=== PATIENT | female | born 1950 | race Caucasian/White ===

== ENCOUNTER → 2021-09-29 | Outpatient (CLI) | payer MEDICARE ==
[~2021-09-29] MED LIST: MULT50L PO
== END | disposition home or self-care (01) ==
LOC: LAB 11:30 → LAB SHORT 11:30
DX: S61.205A Unspecified open wound of left ring finger without damage to nail, initial encounter (principal)
CPT/HCPCS: 87070; 87075; 87076; 87077; 87185; 87205

== ENCOUNTER → 2022-02-09 | Outpatient (CLI) | payer MEDICARE ==
[2022-02-09 17:20] LABS: BASOPHILS ABSOLUTE AUTO 0.06 K/mm3 (0.00-0.23); BASOPHILS PERCENT AUTO 1 % (0-2); EOSINOPHILS ABSOLUTE AUTO 0.36 K/mm3 (0.00-0.68); EOSINOPHILS PERCENT AUTO 6 % (0-6); Hemoglobin 14.3 g/dL (11.5-16.0); IMMATURE GRAN ABSOLUTE AUTO 0.04 K/mm3 (0.00-0.10); IMMATURE GRAN PERCENT AUTO 1 % (0-1); LYMPHOCYTES ABSOLUTE AUTO 1.65 K/mm3 (0.84-5.20); LYMPHOCYTES PERCENT AUTO 28 % (21-46); MONOCYTES PERCENT AUTO 9 % (4-13); Mean Corpuscular HGB 30.1 pg (26.0-34.0); Mean Corpuscular Volume 88 fL (80-100); Mean Platelet Volume 11.3 fL (9.1-12.4); NEUTROPHILS PERCENT AUTO 56 % (41-73); Platelet Count 247 K/mm3 (150-400); RDW Coefficient Variation 12.1 % (11.7-14.2); RDW Standard Deviation 39.4 fL (35.1-46.3); Red Blood Cell Count 4.75 M/mm3 (3.80-5.20); White Blood Cell Count 5.91 K/mm3 (4.00-11.30)
[2022-02-09 18:53] LABS: Alanine Aminotransfer (ALT/SGP 40 U/L (12-78); Albumin, Blood 3.6 g/dL (3.4-5.0); Albumin/Globulin Ratio 0.9 (0.8-1.8); Alk Phos 87 U/L (50-136); Anion Gap 6 mmol/L (6-16); Aspartate Aminotrans (AST/SGOT 70 U/L (12-37); Bilirubin, Total 0.3 mg/dL (0.1-1.0); Blood Urea Nitrogen 14 mg/dL (8-24); Bun/Creatinine Ratio 19.8 (12.0-20.0); CO2, Blood 27 mmol/L (21-32); Calcium, Blood 9.6 mg/dL (8.5-10.1); Chloride, Blood 103 mmol/L (98-108); Cholesterol 218 mg/dL (50-200); Creatinine, Blood 0.71 mg/dL (0.40-1.00); Free Thyroxine 0.98 ng/dL (0.70-1.60); Glomerular Filtration Rate 89 (60-); Glucose, Blood 314 mg/dL (70-99); HDL Cholesterol 54 mg/dL (>39); LDL/HDL RATIO 2.2; Low Density Lipoprotein Chol 120 mg/dL (0-110); Potassium, Blood 4.5 mmol/L (3.5-5.5); Sodium, Blood 136 mmol/L (136-145); Thyroid Stimulating Hormone 0.719 uIU/mL (0.360-4.800); Total Protein, Blood 7.6 g/dL (6.4-8.2); Triglycerides 218 mg/dL (30-160); Very Low Density Lipoprot Chol 43 mg/dL (6-32)
[2022-02-09 19:15] LABS: Cancer Antigen 125 4.2 U/mL (1.5-35.0); Carcinoembryonic Antigen 2.9 ng/mL (0.0-3.0)
== END | disposition home or self-care (01) ==
LOC: LAB 09:00 → LAB SHORT 09:00 → LAB FUT 02-09 11:30 → EDSTATUS 02-09 11:30
PROVIDERS: Family Medicine
DX: E78.5 Hyperlipidemia, unspecified (principal); Z85.41 Personal history of malignant neoplasm of cervix uteri
CPT/HCPCS: 80053; 80061; 82378; 84439; 84443; 85025; 86304

== ENCOUNTER → 2022-06-11 | Outpatient (CLI) | payer MEDICARE ==
[2022-06-14 11:22] LABS: U Amphetamine Screen Not Detected; U Barbituate Screen Not Detected; U Benzodiazapine Screen DETECTED; U Buprenorphine Screen Not Detected; U Cannabinoids Screen Not Detected; U Cocaine Screen Not Detected; U Methadone Screen Not Detected; U Methamphetamine Screen Not Detected; U Opiates Screen Not Detected; U Oxycodone Screen Not Detected; U Phencyclidine Screen Not Detected; U Propoxyphene Screen Not Detected
== END ==
LOC: LAB SHORT 18:38 → LAB 18:38
PROVIDERS: Physician Assistant
DX: M54.9 Dorsalgia, unspecified (principal); Z79.899 Other long term (current) drug therapy; G89.29 Other chronic pain

== ENCOUNTER 2022-10-21 11:11 | Emergency (ER) | payer MEDICARE ==
[~2022-10-21] VITALS: Ht 162.6 cm; Wt 57.1 kg
[2022-10-21 11:25] VITALS: BP 128/67
[2022-10-21] MEDS ORDERED: Bactrim Ds Tab1 EACH PO ×2 (12:30→12:38)
[2022-10-21] MEDS ORDERED: CEPH500 PO ×2 (12:30→12:38)
== END 2022-10-21 12:44 | disposition home or self-care (01) ==
LOC: ER 11:11
DX: L03.115 Cellulitis of right lower limb (principal); L02.415 Cutaneous abscess of right lower limb; Z88.8 Allergy status to other drugs, medicaments and biological substances; Z79.899 Other long term (current) drug therapy
CPT/HCPCS: 10160; 99282-25

== ENCOUNTER → 2023-03-02 | Outpatient (CLI) | payer MEDICARE ==
[~2023-03-02] MED LIST changes: +Bactrim Ds Tab1 EACH PO; +CEPH500 PO
== END ==
LOC: LAB SHORT 12:30 → LAB 12:30
DX: L08.9 Local infection of the skin and subcutaneous tissue, unspecified (principal)
CPT/HCPCS: 87070; 87075; 87077; 87186; 87205

== ENCOUNTER 2023-03-16 09:31 | Inpatient (IN) | payer MEDICARE ==
[~2023-03-16] VITALS: Ht 167.6 cm; Wt 53.1 kg
[2023-03-16 10:40] LABS: BASOPHILS ABSOLUTE AUTO 0.03 K/mm3 (0.00-0.23); BASOPHILS PERCENT AUTO 0 % (0-2); EOSINOPHILS ABSOLUTE AUTO 0.03 K/mm3 (0.00-0.68); EOSINOPHILS PERCENT AUTO 0 % (0-6); Hematocrit 37.7 % (33.0-51.0); Hemoglobin 12.5 g/dL (11.5-16.0); IMMATURE GRAN ABSOLUTE AUTO 0.06 K/mm3 (0.00-0.10); IMMATURE GRAN PERCENT AUTO 1 % (0-1); LYMPHOCYTES ABSOLUTE AUTO 1.33 K/mm3 (0.84-5.20); LYMPHOCYTES PERCENT AUTO 10 % (21-46); MONOCYTES ABSOLUTE AUTO 0.77 K/mm3 (0.16-1.47); MONOCYTES PERCENT AUTO 6 % (4-13); Mean Corpuscular HGB 28.4 pg (26.0-34.0); Mean Corpuscular HGB Conc 33.2 g/dL (31.5-36.5); Mean Corpuscular Volume 86 fL (80-100); Mean Platelet Volume 9.8 fL (9.1-12.4); NEUTROPHILS ABSOLUTE AUTO 10.86 K/mm3 (1.96-9.15); NEUTROPHILS PERCENT AUTO 83 % (41-73); Platelet Count 543 K/mm3 (150-400); RDW Standard Deviation 37.9 fL (35.1-46.3); White Blood Cell Count 13.08 K/mm3 (4.00-11.30)
[2023-03-16 11:05] LABS: Albumin, Blood 2.8 g/dL (3.4-5.0); Albumin/Globulin Ratio 0.5 (0.8-1.8); Bilirubin, Total 0.4 mg/dL (0.1-1.0); Bun/Creatinine Ratio 41.2 (12.0-20.0); Calcium, Blood 10.2 mg/dL (8.5-10.1); Creatinine, Blood 0.73 mg/dL (0.40-1.00); Globulin, Blood 5.2 g/dL (2.2-4.0)
[2023-03-16 11:35] LABS: Calcium, Ionized (POC) 1.21 mmol/L (1.10-1.46); Chloride (POC) 90 mmol/L (98-108); Creatinine (POC) 0.8 mg/dL (0.6-1.0); Glucose (ISTAT POC) 489 mg/dL (70-99); Hemoglobin (POC) 12.6 g/dL (12.0-16.0); Sodium (POC) 130 mmol/L (135-148); Total CO2 (POC) 31 mmol/L (21-32)
[2023-03-16] MEDS ORDERED: Doxycycline Mon50 MG PO (12:22)
[2023-03-16] MEDS ORDERED: PROZAC2010 PO (12:22)
[2023-03-16 13:18] LABS: Potassium, Blood 3.9 mmol/L (3.5-5.5)
[2023-03-16 16:40] VITALS: BP 187/88
[2023-03-16 17:53] VITALS: BP 181/80
[2023-03-16 18:32] VITALS: BP 140/72
--- NOTE | 2023-03-16 18:50 | NUR ---
DRESSING APPLIED WOUND CLEANED W/WOUND INSULATION ENGINEMAN AND DRESSING APPLIED TO R KNEE. DRESSED W/NON ADHERENT PAD, 4X4 GAUZE, AND BRENNAN WRAP. REDNESS, SWELLING, AND WHITE/YELLOW DRAINAGE NOTED.
[2023-03-16 20:02] VITALS: BP 147/69
[2023-03-17] VITALS (15 sets, daily range): BP systolic 106–192; BP diastolic 54–86
--- NOTE | 2023-03-17 04:38 | NUR ---
SHIFT SUMMARY; NO ACUTE CHANGES OVERNIGHT. THE PT IS AXO X3-4 AND A ONE ASSIST TO THE BSC. THE PT HAS BEEN SLEEPING FOR THE MAJORITY OF THE NIGHT. THE PT COMPLAINED OF R KNEE PAIN ONCE AT THE BEGINNING OF SHIFT, MEDICATED W/ TORADOL W/ GOOD RELIEF. THE PT HAS OTHERWISE DENIED ANY PAIN, SOB, CHEST PAIN/PRESSURE OR N/V. CURRENTLY THE PT IS SLEEPING IN BED WITH THE BED IN THE LOWEST POSITION AND THE CALL LIGHT AT BEDSIDE. PT HAS BEEN NPO SINCE MIDNIGHT IN PREPERATION FOR SURGERY TODAY. FIRE SAFETY MAINTAINED T/O THE NIGHT.
[2023-03-17 06:35] LABS: BASOPHILS ABSOLUTE AUTO 0.04 K/mm3 (0.00-0.23); BASOPHILS PERCENT AUTO 0 % (0-2); EOSINOPHILS PERCENT AUTO 2 % (0-6); Hematocrit 31.3 % (33.0-51.0); Hemoglobin 10.4 g/dL (11.5-16.0); IMMATURE GRAN ABSOLUTE AUTO 0.07 K/mm3 (0.00-0.10); IMMATURE GRAN PERCENT AUTO 1 % (0-1); LYMPHOCYTES ABSOLUTE AUTO 1.87 K/mm3 (0.84-5.20); LYMPHOCYTES PERCENT AUTO 17 % (21-46); MONOCYTES ABSOLUTE AUTO 0.91 K/mm3 (0.16-1.47); MONOCYTES PERCENT AUTO 8 % (4-13); Mean Corpuscular HGB 28.5 pg (26.0-34.0); Mean Corpuscular HGB Conc 33.2 g/dL (31.5-36.5); Mean Corpuscular Volume 86 fL (80-100); Mean Platelet Volume 10.1 fL (9.1-12.4); NEUTROPHILS ABSOLUTE AUTO 8.17 K/mm3 (1.96-9.15); NEUTROPHILS PERCENT AUTO 73 % (41-73); Platelet Count 428 K/mm3 (150-400); RDW Coefficient Variation 12.1 % (11.7-14.2); RDW Standard Deviation 37.5 fL (35.1-46.3); Red Blood Cell Count 3.65 M/mm3 (3.80-5.20); White Blood Cell Count 11.26 K/mm3 (4.00-11.30)
[2023-03-17 06:54] LABS: Bun/Creatinine Ratio 32.9 (12.0-20.0); Calcium, Blood 8.7 mg/dL (8.5-10.1); Creatinine, Blood 0.67 mg/dL (0.40-1.00); Potassium, Blood 3.2 mmol/L (3.5-5.5)
--- NOTE | 2023-03-17 13:58 | NUR ---
REPORT RECEIVED FROM SIFTER AND MILLER DAVE. PT ARRIVED BACK TO ROOM 331 VIA GURNEY AND SLIDE TX TO BED. PT ALERT AND ORIENTED X4, REPORTS INCREASED PAIN TO R KNEE WHICH IS BRENNAN WRAPPED AND CDI. PT IS CRYING. WILL MEDICATE WITH TORADOL AND TYLENOL PER AUG.
--- NOTE | 2023-03-17 16:44 | NUR ---
PT IS AOX4 AND COOPERATIVE OF CARE. PT HAD IND COMPLETED ON R KNEE TODAY AND IS DOING WELL AT THIS TIME. SISTER IS SITTING WITH PT. PT TREATED FOR PAIN PER EMAR. PT HAD HIGH BP,BUT BP HAS IMPROVED WILL CONTINUE TO MONITOR AND TREAT IF NEEDED. CALL LIGHT IS WITHIN REACH.
[2023-03-18 03:34] VITALS: BP 158/72
[2023-03-18 05:47] LABS: BASOPHILS ABSOLUTE AUTO 0.04 K/mm3 (0.00-0.23); BASOPHILS PERCENT AUTO 0 % (0-2); EOSINOPHILS ABSOLUTE AUTO 0.33 K/mm3 (0.00-0.68); EOSINOPHILS PERCENT AUTO 3 % (0-6); Hematocrit 29.4 % (33.0-51.0); Hemoglobin 9.8 g/dL (11.5-16.0); IMMATURE GRAN ABSOLUTE AUTO 0.11 K/mm3 (0.00-0.10); IMMATURE GRAN PERCENT AUTO 1 % (0-1); LYMPHOCYTES ABSOLUTE AUTO 1.88 K/mm3 (0.84-5.20); LYMPHOCYTES PERCENT AUTO 17 % (21-46); MONOCYTES ABSOLUTE AUTO 0.88 K/mm3 (0.16-1.47); MONOCYTES PERCENT AUTO 8 % (4-13); Mean Corpuscular HGB Conc 33.3 g/dL (31.5-36.5); Mean Corpuscular Volume 87 fL (80-100); Mean Platelet Volume 9.9 fL (9.1-12.4); NEUTROPHILS PERCENT AUTO 71 % (41-73); Platelet Count 358 K/mm3 (150-400); RDW Coefficient Variation 12.5 % (11.7-14.2); RDW Standard Deviation 39.7 fL (35.1-46.3); Red Blood Cell Count 3.38 M/mm3 (3.80-5.20); White Blood Cell Count 11.14 K/mm3 (4.00-11.30)
[2023-03-18 06:07] LABS: Bun/Creatinine Ratio 28.7 (12.0-20.0); Calcium, Blood 7.9 mg/dL (8.5-10.1); Creatinine, Blood 0.7 mg/dL (0.40-1.00); Potassium, Blood 3.8 mmol/L (3.5-5.5)
--- NOTE | 2023-03-18 06:46 | NUR ---
SHIFT SUMMARY PRN TRAMADOL AND TORADOL GIVEN THIS SHIFT, BOTH WITH POSITIVE EFFECT. PT MOBILITY IN RLE GREATLY IMPROVED SINCE START OF SHIFT. FIRE SAFETY REVIEWED, NO IGNITION SOURCES
[2023-03-18 07:47] VITALS: BP 179/81
[2023-03-18 14:52] VITALS: BP 110/66
--- NOTE | 2023-03-18 16:30 | NUR ---
PT IS AOX4 AND COOPERATIVE OF CARE. PT DOING WELL AND CAN MOVE L LEG MUCH BETTER TODAY AND WIGGLE TOES AND FOOT. PT WAS ABLE TO WORK WITH PHYSICAL THERAPY AND WALK WITH WALKER. SHE ALSO WALKED WITH HER SISTER IN THE HALLWAY WITH WALKER. PT USING WALKER WELL TO GO INTO RESTROOM. L KNEE PAIN TREATED PER EMAR. NO DISTRESS NOTED AND CALL LIGHT WITHIN REACH. WILL CONTINUE TO MONITOR.
[2023-03-18 19:22] VITALS: BP 136/65
[2023-03-19 03:51] VITALS: BP 166/77
--- NOTE | 2023-03-19 05:14 | NUR ---
SHIFT SUMMARY 73 YR F ADMITTED ON 03/16/21 FOR ABSCESS AND I&D OF RIGHT KNEE. DNR. NO ACUTE CHANGES THIS SHIFT. PT STATES SHE IS STILL HAVING A GREAT DEAL OF PAIN BUT HAS MORE MOBILITY IN HER KNEE AND THAT SHE CAN TELL IT IS GETTING BETTER. SHE IS EAGER TO HEAL AND STATES THAT SHE WILL BE PROACTIVE IN HER CARE.
[2023-03-19 05:44] LABS: BASOPHILS ABSOLUTE AUTO 0.04 K/mm3 (0.00-0.23); BASOPHILS PERCENT AUTO 1 % (0-2); EOSINOPHILS ABSOLUTE AUTO 0.43 K/mm3 (0.00-0.68); EOSINOPHILS PERCENT AUTO 6 % (0-6); Hematocrit 27.4 % (33.0-51.0); IMMATURE GRAN PERCENT AUTO 1 % (0-1); LYMPHOCYTES ABSOLUTE AUTO 1.63 K/mm3 (0.84-5.20); LYMPHOCYTES PERCENT AUTO 21 % (21-46); MONOCYTES ABSOLUTE AUTO 0.85 K/mm3 (0.16-1.47); MONOCYTES PERCENT AUTO 11 % (4-13); Mean Corpuscular HGB 28.9 pg (26.0-34.0); Mean Corpuscular HGB Conc 32.8 g/dL (31.5-36.5); Mean Corpuscular Volume 88 fL (80-100); Mean Platelet Volume 10.3 fL (9.1-12.4); NEUTROPHILS PERCENT AUTO 61 % (41-73); Platelet Count 315 K/mm3 (150-400); RDW Coefficient Variation 12.5 % (11.7-14.2); RDW Standard Deviation 39.8 fL (35.1-46.3); Red Blood Cell Count 3.11 M/mm3 (3.80-5.20); White Blood Cell Count 7.75 K/mm3 (4.00-11.30)
[2023-03-19 06:12] LABS: Albumin, Blood 1.9 g/dL (3.4-5.0); Anion Gap 2 mmol/L (6-16); Blood Urea Nitrogen 24 mg/dL (8-24); Bun/Creatinine Ratio 34.1 (12.0-20.0); CO2, Blood 30 mmol/L (21-32); Calcium, Blood 8.2 mg/dL (8.5-10.1); Chloride, Blood 107 mmol/L (98-108); Glomerular Filtration Rate 90 (60-); Glucose, Blood 239 mg/dL (70-99); Phosphorus, Blood 2.6 mg/dL (2.5-4.9); Potassium, Blood 3.7 mmol/L (3.5-5.5); Sodium, Blood 139 mmol/L (136-145)
[2023-03-19 07:26] VITALS: BP 189/83
[2023-03-19 07:52] VITALS: BP 161/70
--- NOTE | 2023-03-19 11:10 | NUR ---
PHYSICIAN CONTACT CONTACTED SURGERY WAVE GUIDE ASSEMBLER REGARDING WOUND CARE AND DISCHARGE. ORDERED ADAPTIC WET TO DRY DRESSING TO BE CHANGED TODAY AND DAILY, FOLLOW UP WITH OUTPATIENT WOUND CLINIC MEENA.
--- NOTE | 2023-03-19 12:25 | NUR ---
CONTACTED CM CONTACTED WEEKEND CM WHO STATED SHE WOULD MAKE [facility]. PATIENT MADE AWARE BY PRIMARY RN
[2023-03-19] MEDS ORDERED: INSULANPEN SC (12:43)
[2023-03-19] MEDS ORDERED: ACET325 PO (12:43)
[2023-03-19] MEDS ORDERED: OMEP20ER PO (12:44)
[2023-03-19] MEDS ORDERED: Prinivil10 MG PO (12:44)
[2023-03-19] MEDS ORDERED: HUMULIN R100 UNIT/1 SC (12:44)
[2023-03-19] MEDS ORDERED: TRAM50 PO (12:45)
[2023-03-19] MEDS ORDERED: LEVO750 PO (12:48)
[2023-03-19] MEDS ORDERED: VISBIOME 112.51 EACH PO (12:48)
[2023-03-19 14:56] VITALS: BP 137/67
--- NOTE | 2023-03-19 16:16 | NUR ---
DISCHARGE SUMMARY PATIENT DISCHARGED THIS SHIFT, HOME WITH HOME HEALTH TO FOLLOW, CM CONTACTED AND STATED THEY WOULD PLACE REFERRAL. HARD SCRIPTS PROVIDED AND MEDS FAXED TO [facility]. EDUCATION PROVIDED VERBALLY AND IN WRITING, PATIENT ASKED QUESTIONS AND PROVIDED TEACHBACK TO RN. WOUND CARE SUPPLIES SENT WITH PATIENT TO LAST THROUGH TUESDAY UNTIL ABLE TO BE SEEN BY WOUND CARE/HH. PATIENT WAS ABLE TO PROVIDE VERBAL INSTRUCTION ON WOUND CARE. IV DISCONTINUED PRIOR TO DISCHARGE.
== END 2023-03-19 15:35 | disposition home health service (06) | DRG 572 ==
LOC: ER 09:31 → MEDS 14:04 → ENPENDDIS 03-19 11:29 → MEDS 03-19 15:35
PROVIDERS: Emergency Medicine; Orthopaedic Surgery; Physician Assistant; ADMIT Family Medicine
PROC: 0S9C3ZX Drainage of Right Knee Joint, Percutaneous Approach, Diagnostic (ICD-10-PCS; 2023-03-17)
PROC: 0JBN0ZZ Excision of Right Lower Leg Subcutaneous Tissue and Fascia, Open Approach (ICD-10-PCS; principal; 2023-03-17 11:30)
DX: L02.415 Cutaneous abscess of right lower limb (principal); S81.001A Unspecified open wound, right knee, initial encounter; M70.41 Prepatellar bursitis, right knee; Z66 Do not resuscitate; E11.65 Type 2 diabetes mellitus with hyperglycemia; K21.9 Gastro-esophageal reflux disease without esophagitis; R29.6 Repeated falls; D72.828 Other elevated white blood cell count; F32.A Depression, unspecified; E87.6 Hypokalemia; D64.9 Anemia, unspecified; D75.839 Thrombocytosis, unspecified; I10 Essential (primary) hypertension; M19.90 Unspecified osteoarthritis, unspecified site; M85.80 Other specified disorders of bone density and structure, unspecified site; N80.9 Endometriosis, unspecified; X58.XXXA Exposure to other specified factors, initial encounter; Z85.41 Personal history of malignant neoplasm of cervix uteri; Z90.49 Acquired absence of other specified parts of digestive tract; Z90.710 Acquired absence of both cervix and uterus; Z98.890 Other specified postprocedural states
CPT/HCPCS: 36415; 73701; 80047; 80048; 80053; 80069; 82947; 83036; 85014; 85025; 87070; 87071; 87075; 87076; 87077; 87186; 87205; 97110; 97116; 97162; 97530; 99284-25; A9270; J0360; J0690; J1100; J1650; J1815; J1885; J2405; J2704; J3010; J7030; J7050; J7120; Q9967

== ENCOUNTER 2024-06-28 15:01 | Inpatient (IN) | payer MEDICARE ==
[~2024-06-28] VITALS: Ht 165.1 cm; Wt 57.7 kg
[~2024-06-28 15:01] MED LIST changes: +ACET325 PO; +Doxycycline Mon50 MG PO; +HUMULIN R100 UNIT/1 SC; +INSULANPEN SC; +LEVO750 PO; +OMEP20ER PO; +PROZAC2010 PO; +Prinivil10 MG PO; +TRAM50 PO; +VISBIOME 112.51 EACH PO
[2024-06-28 16:02] LABS: BASOPHILS ABSOLUTE AUTO 0.06 K/mm3 (0.00-0.23); BASOPHILS PERCENT AUTO 1 % (0-2); EOSINOPHILS ABSOLUTE AUTO 0.83 K/mm3 (0.00-0.68); EOSINOPHILS PERCENT AUTO 12 % (0-6); Hematocrit 37.9 % (33.0-51.0); Hemoglobin 12.9 g/dL (11.5-16.0); IMMATURE GRAN ABSOLUTE AUTO 0.01 K/mm3 (0.00-0.10); IMMATURE GRAN PERCENT AUTO 0 % (0-1); LYMPHOCYTES ABSOLUTE AUTO 2.22 K/mm3 (0.84-5.20); LYMPHOCYTES PERCENT AUTO 32 % (21-46); MONOCYTES ABSOLUTE AUTO 0.64 K/mm3 (0.16-1.47); MONOCYTES PERCENT AUTO 9 % (4-13); Mean Corpuscular HGB 30.4 pg (26.0-34.0); Mean Corpuscular Volume 89 fL (80-100); NEUTROPHILS ABSOLUTE AUTO 3.25 K/mm3 (1.96-9.15); NEUTROPHILS PERCENT AUTO 46 % (41-73); Platelet Count 203 K/mm3 (150-400); RDW Coefficient Variation 12.9 % (11.7-14.2); RDW Standard Deviation 42.1 fL (35.1-46.3); Red Blood Cell Count 4.24 M/mm3 (3.80-5.20); White Blood Cell Count 7.01 K/mm3 (4.00-11.30)
[2024-06-28 16:29] LABS: Albumin, Blood 3.7 g/dL (3.4-5.0); Albumin/Globulin Ratio 0.9 (0.8-1.8); Bilirubin, Total 0.3 mg/dL (0.1-1.0); Bun/Creatinine Ratio 17.5 (12.0-20.0); Calcium, Blood 9.7 mg/dL (8.5-10.1); Creatinine, Blood 0.8 mg/dL (0.40-1.00); Globulin, Blood 3.9 g/dL (2.2-4.0); Potassium, Blood 4.1 mmol/L (3.5-5.5); Total Protein, Blood 7.6 g/dL (6.4-8.2)
[2024-06-28] MEDS ORDERED: Aspirin 325 MG Tab PO ONE (20:55)
[2024-06-28] MEDS ORDERED: HydrALAZINE HCl 20 MG / ML 1ML Vial IV ONE ×2 (21:00→23:10)
[2024-06-28] MEDS ORDERED: FLU VACC TS2024-25(6MOS UP)/PF 45 MCG/0.5 ML SYRINGE IM ONE (21:40)
[2024-06-28] MEDS ORDERED: HydrALAZINE HCl 20 MG / ML 1ML Vial IV PRN (23:20)
[2024-06-29] VITALS (9 sets, daily range): BP systolic 130–188; BP diastolic 65–82
[2024-06-29] MEDS ORDERED: METF500 PO (01:42)
[2024-06-29] MEDS ORDERED: CODACE30 PO (01:45)
[2024-06-29] MEDS ORDERED: HydrALAZINE HCl 20 MG / ML 1ML Vial IV PRN ×2 (03:30→08:20)
[2024-06-29 04:17] LABS: BASOPHILS ABSOLUTE AUTO 0.05 K/mm3 (0.00-0.23); BASOPHILS PERCENT AUTO 1 % (0-2); EOSINOPHILS ABSOLUTE AUTO 0.66 K/mm3 (0.00-0.68); EOSINOPHILS PERCENT AUTO 10 % (0-6); IMMATURE GRAN ABSOLUTE AUTO 0.02 K/mm3 (0.00-0.10); IMMATURE GRAN PERCENT AUTO 0 % (0-1); LYMPHOCYTES ABSOLUTE AUTO 1.55 K/mm3 (0.84-5.20); LYMPHOCYTES PERCENT AUTO 24 % (21-46); MONOCYTES ABSOLUTE AUTO 0.61 K/mm3 (0.16-1.47); MONOCYTES PERCENT AUTO 9 % (4-13); Mean Corpuscular HGB 29.9 pg (26.0-34.0); Mean Corpuscular HGB Conc 33.3 g/dL (31.5-36.5); Mean Corpuscular Volume 90 fL (80-100); Mean Platelet Volume 10.4 fL (9.1-12.4); NEUTROPHILS PERCENT AUTO 55 % (41-73); Platelet Count 181 K/mm3 (150-400); RDW Coefficient Variation 12.9 % (11.7-14.2); RDW Standard Deviation 42.7 fL (35.1-46.3); Red Blood Cell Count 4.02 M/mm3 (3.80-5.20); White Blood Cell Count 6.49 K/mm3 (4.00-11.30)
[2024-06-29 04:44] LABS: Albumin, Blood 3.3 g/dL (3.4-5.0); Albumin/Globulin Ratio 0.9 (0.8-1.8); Bilirubin, Total 0.4 mg/dL (0.1-1.0); Bun/Creatinine Ratio 16.3 (12.0-20.0); Calcium, Blood 9.2 mg/dL (8.5-10.1); Creatinine, Blood 0.8 mg/dL (0.40-1.00); Globulin, Blood 3.5 g/dL (2.2-4.0); Potassium, Blood 3.8 mmol/L (3.5-5.5); Total Protein, Blood 6.8 g/dL (6.4-8.2)
[2024-06-29] MEDS ORDERED: OxyCODONE HCL 10 MG TABCR PO PRN (08:35)
[2024-06-29] MEDS ORDERED: Clopidogrel Bisulfate 75 MG Tab PO SCH (09:00)
[2024-06-29] MEDS ORDERED: FLUoxetine HCL 20 MG CAP PO SCH (09:00)
[2024-06-29] MEDS ORDERED: Atorvastatin 40 MG Tab PO SCH (09:00)
[2024-06-29] MEDS ORDERED: Aspirin 81 MG Chew PO SCH (09:00)
--- NOTE | 2024-06-29 17:56 | NUR ---
SHIFT NOTE: PT A/OX3. SHE CAN ANSWER YES/NO AND SIMPLE QUESTIONS. ANYTHING REQUIRING EXPLANATION SHE IS UNABLE TO ARTICULATE THE WORDS. SHE CAN MOVE ALL EXTRIMITIES AND AMBULATES WITHOUT ASSISTED DEVICES. SHE IS CONT AND AMBULATES TO THE BATHROOM SBA. SHE IS ON TELE IN NSR/SB. SHE DENIES CHEST PAIN/PRESSURE. SHE ENDORSES HEADACHE WITH RELIEF FROM OXYCODONE. PT HAS BEEN UPDATED ON PLAN OF CARE BY DR. MAGANA.
[2024-06-30 01:30] VITALS: BP 152/72
[2024-06-30 06:14] VITALS: BP 167/85
--- NOTE | 2024-06-30 06:56 | NUR ---
PERSONNEL TECHNICIAN SUMMARY NO SIGNIFICANT CHANGES OVERNIGHT. PT IS WALKING THE UNIT MULTIPLE TIMES WITHOUT ISSUES. SHE IS STILL EXPERIENCING SOME EXPRESSIVE APHASIA BUT IS OTHERWISE NEUROLOGICALLY INTACT. HER BLOOD PRESSURES HAVE BEEN IN THE 130S-150S
[2024-06-30 07:54] VITALS: BP 211/90
[2024-06-30 08:20] VITALS: BP 154/97
[2024-06-30] MEDS ORDERED: Pantoprazole Sodium 20 MG Tab PO SCH (10:00)
[2024-06-30 10:52] LABS: Albumin, Blood 3.5 g/dL (3.4-5.0); Albumin/Globulin Ratio 0.9 (0.8-1.8); Bilirubin, Total 0.5 mg/dL (0.1-1.0); Bun/Creatinine Ratio 17.5 (12.0-20.0); Calcium, Blood 9.9 mg/dL (8.5-10.1); Creatinine, Blood 0.97 mg/dL (0.40-1.00); Globulin, Blood 3.8 g/dL (2.2-4.0); Potassium, Blood 4.4 mmol/L (3.5-5.5); Thyroid Stimulating Hormone 0.779 uIU/mL (0.360-4.800); Total Protein, Blood 7.3 g/dL (6.4-8.2)
--- NOTE | 2024-06-30 12:20 | NUR ---
UPDATE STATUS CHANGED TO MEDICAL. PT REMAINS ALERT AND ORIENTED. PT UP AMBULATING IN THE GARCIA. PT DENIES ANY PAIN. REPORT GIVEN TO MEDICAL FLOOR RN TO ASSUME CARE. WILL TRANSPORT PT VIA
--- NOTE | 2024-06-30 12:49 | NUR ---
ASSUMED CARE OF PATIENT. UNDER THE IMPRESSION SHE IS DISCHARGING TODAY AND ANXIOUS TO DO SO; WILL REACH OUT TO PROVIDER FOR CLARIFICATION.
--- NOTE | 2024-06-30 12:55 | NUR ---
CALL TO DR. COLMENARES WHO STATES PATIENT'S BP STILL VERY LABILE AND DISCHARGE IS NOT SAFE AT THIS POINT. PATIENT NOTIFIED. DISAPPOINTED, BUT AGREEABLE AT THIS TIME.
[2024-06-30 13:51] VITALS: BP 177/74
--- NOTE | 2024-06-30 13:52 | NUR ---
1345 PT WALKING DOWN GARCIA WITH FAMILY MEMBER AND STATES SHE IS LEAVING.DISCUSSED WITH PATIENT LEAVING AMA AND PT VERIFIES SHE WISHES TO LEAVE AMA. HAD PT RETURN TO ROOM AND AFTER SPEAKING WITH PATIENTS PRIMARY NURSE, RUSTAM ARELLANO, I DISCUSSED WITH PT WAS THE PLAN THAT DR COLMENARES DISCUSSED WITH PATIENT THIS MORNING WAS SHE WILL LIKELY STAY IN HOSPITAL UNTIL TUESDAY HER BP HAS BEEN VERY LABILE AND MEDICATIONS ARE BEING ADJUSTED. CALLED DR COLMENARES WHO WILL SPEAK WITH PATIENT AND FAMILY ABOUT PLAN OF CARE. PT TEARFUL, AGREES TO WAIT TO SPEAK WITH DR COLMENARES
--- NOTE | 2024-06-30 14:53 | NUR ---
DR. COLMENARES TO BEDSIDE AND DISCUSSED PATIENT'S BLOOD PRESSURE WITH HER. PATIENT AGREEABLE TO STAY, RIGHT NOW. FAMILY FRIEND AT BEDSIDE REPORTS SHE CAN BE PERSISTENT, STUBBORN AND FORGETFUL AND IS NOT SURE FOR HOW LONG PATIENT WILL "STAY STILL". PROVIDED WITH PRINTED HANDOUTS OF INFORMATION AND EDUCATION FOR BOTH PATIENT AND A COPY FOR HER FRIEND. FRIEND TOLD PATIENT SHE IS GOING TO READ THE INFORMATION AND "MAKE SURE EVERYTHING IS READY FOR HER AT HOME" IN HOPES OF PATIENT STAYING AGREEABLE.
--- NOTE | 2024-06-30 17:51 | NUR ---
END OF SHIFT SUMMARY: A&Ox4. PLEASANT AND COOPERATIVE WITH CARE. CALLS APPROPRIATELY AND IS ABLE TO ADVOCATE NEEDS EFFECTIVELY. INDEPENDENT WITH AMBULATE. CONTINENT OF BOWEL AND BLADDER. MEDS WHOLE c FLUIDS. NO COMPLAINTS OF PAIN OR DISCOMFORT. DID EXPRESS SOME EMOTIONAL DISCONTENT WITH NOT DISCHARGING HOME TODAY AND BEGAN LEAVING AMA BUT WAS AGREEABLE TO STAYING AFTER DISCUSSION WITH DR. COLMENARES AND OTHER STAFF MEMBERS. STAFF REITERATE EDUCATION REGARDING PERMISSIVE HYPERTENSION, SLOW REDUCTION OF BLOOD PRESSURE AND SAFETY HAZARDS RELATED TO BOTH ORTHOSTATIC HYPOTENSION AND HYPERTENSIVE EMERGENCY. BED IN LOWEST POSITION, CALL LIGHT WITHIN REACH, ALL NEEDS MET. REPORT TO ONCOMING NURSE.
[2024-06-30] MEDS ORDERED: Lisinopril 5 MG Tab PO ONE (18:00)
[2024-06-30 20:08] VITALS: BP 130/61
[2024-07-01 03:48] VITALS: BP 115/64
--- NOTE | 2024-07-01 04:33 | NUR ---
SHIFT SUMM: PT IS A 74 YO DNR PCU TRANSFER YESTERDAY THAT WAS ADMITTED FOR HYPERTENSIVE EMERGENCY. PT IS IND IN ROOM AND CALLS WHEN SHE NEEDS SOMETHING. PT IS ON TELE AND IS SR AT 62 W/OCCASIONAL PVC'S.PT HAS SOME DYSPHAGIA AND TROUBLE SPEAKING OR THINKING OF THE NAME OF THE WORD SHE WANTS TO USE AT TIMES. PT IS A&OX4 ON RA. PT HAS PERMISSIVE HTN THAT THE DOCTOR IS AWARE OF. PT HAS SPENT MOST OF SHIFT WATCHING TV IN BED. PT HAS BEEN IN GOOD SPIRITS AND JUST FOCUSING ON RESTING FOR RIGHT NOW. CALL LIGHT IN REACH. PT ALSO AMBULATED IN THE HALLWAYS AND ALSO HAS A ZIO PATCH.
[2024-07-01 05:30] LABS: BASOPHILS ABSOLUTE AUTO 0.05 K/mm3 (0.00-0.23); BASOPHILS PERCENT AUTO 1 % (0-2); EOSINOPHILS ABSOLUTE AUTO 0.64 K/mm3 (0.00-0.68); EOSINOPHILS PERCENT AUTO 10 % (0-6); Hematocrit 37.3 % (33.0-51.0); Hemoglobin 12.6 g/dL (11.5-16.0); IMMATURE GRAN ABSOLUTE AUTO 0.02 K/mm3 (0.00-0.10); IMMATURE GRAN PERCENT AUTO 0 % (0-1); LYMPHOCYTES ABSOLUTE AUTO 1.56 K/mm3 (0.84-5.20); LYMPHOCYTES PERCENT AUTO 24 % (21-46); MONOCYTES ABSOLUTE AUTO 0.69 K/mm3 (0.16-1.47); MONOCYTES PERCENT AUTO 11 % (4-13); Mean Corpuscular HGB 30.5 pg (26.0-34.0); Mean Corpuscular HGB Conc 33.8 g/dL (31.5-36.5); Mean Corpuscular Volume 90 fL (80-100); Mean Platelet Volume 10.4 fL (9.1-12.4); NEUTROPHILS ABSOLUTE AUTO 3.53 K/mm3 (1.96-9.15); NEUTROPHILS PERCENT AUTO 54 % (41-73); Platelet Count 211 K/mm3 (150-400); RDW Coefficient Variation 12.9 % (11.7-14.2); RDW Standard Deviation 42.3 fL (35.1-46.3); Red Blood Cell Count 4.13 M/mm3 (3.80-5.20); White Blood Cell Count 6.49 K/mm3 (4.00-11.30)
[2024-07-01 06:29] LABS: Anion Gap 9 mmol/L (3-11); Blood Urea Nitrogen 21 mg/dL (8-24); Bun/Creatinine Ratio 19.3 (12.0-20.0); CHOL/HDL RATIO 3.8; CO2, Blood 26 mmol/L (21-32); Calcium, Blood 9.7 mg/dL (8.5-10.1); Chloride, Blood 108 mmol/L (98-108); Cholesterol 253 mg/dL (50-200); Creatinine, Blood 1.09 mg/dL (0.40-1.00); Glomerular Filtration Rate 53 (60-); Glucose, Blood 202 mg/dL (70-99); HDL Cholesterol 66 mg/dL (>39); LDL/HDL RATIO 2.3; Low Density Lipoprotein Chol 151 mg/dL (0-110); Potassium, Blood 4.2 mmol/L (3.5-5.5); Sodium, Blood 139 mmol/L (136-145); Triglycerides 181 mg/dL (30-160); Very Low Density Lipoprot Chol 36 mg/dL (6-32)
[2024-07-01 07:17] VITALS: BP 209/86
[2024-07-01 08:38] VITALS: BP 176/81
[2024-07-01] MEDS ORDERED: Lisinopril 10 MG Tab PO SCH (09:00)
[2024-07-01] MEDS ORDERED: ATOR80 PO (10:34)
[2024-07-01] MEDS ORDERED: PANT20 PO (10:34)
[2024-07-01] MEDS ORDERED: ASPI81CH PO (10:34)
[2024-07-01] MEDS ORDERED: CLOP75 PO (10:35)
[2024-07-01 12:56] VITALS: BP 154/81
--- NOTE | 2024-07-01 13:07 | NUR ---
PHYSICIAN CONTACT CALLED DR COLMENARES TO INFORM HER THAT PATIENT FELL. WAS COMING ACROSS GARCIA TO ASK FOR BUTTER, THIS RN WATCHED HER WALK BACK INTO ROOM THEN TURNED BACK TO COMPUTER AND HEAR THE FALL. PATIENT FELL ON BUTTOCK AND L ELBOW, DID NOT HIT HEAD. NO IMMEDIATE INJURIES NOTED. VITALS TAKEN, OKAY RANGE FOR CONDITION AT THIS TIME. REPORTS BEING "CAUGHT UP ON SHOES" WHICH CAUSED FALL. DR COLMENARES ADVISED PHYSICAL THERAPY TO SEE PT PRIOR TO DISCHARGING. ATTEMPTED TO CALL PT, NO ANSWER, LEFT MESSAGE. NO ANSWER AT PHYSICAL THERAPY OFFICE. THERAPY CALLED BACK, STATED THEY WOULD EVAL NEXT ON LIST.
[2024-07-01 13:16] VITALS: BP 154/81
--- NOTE | 2024-07-01 15:45 | NUR ---
DISCHARGE SUMMARY PATIENT DISCHARGED HOME THIS SHIFT WITH FRIEND TO DRIVE, SENT WITH INSTRUCTIONS TO FOLLOW UP WITH PCP FOR OUTPATIENT PHYSICAL THERAPY. DISCHARGE PACKET UPDATED AND GIVEN TO PT TO REFLECT THIS CHANGE. DISCHARGE PACKET GIVEN AND REVIEWED, QUESTIONS ANSWERED, VERBALIZED UNDERSTANDING. IV REMOVED PRIOR WITHOUT COMPLICATION.
== END 2024-07-01 15:24 | disposition home or self-care (01) | DRG 65 ==
LOC: ER 15:01 → PCU 21:40 → MEDS 06-30 12:31 → ENPENDDIS 07-01 12:49 → MEDS 07-01 15:24
PROVIDERS: Internal Medicine; Physician Assistant; Student in an Organized Health Care Education/Training Program; ADMIT Student in an Organized Health Care Education/Training Program
DX: I63.412 Cerebral infarction due to embolism of left middle cerebral artery (principal); I16.1 Hypertensive emergency; I65.23 Occlusion and stenosis of bilateral carotid arteries; Z66 Do not resuscitate; F32.A Depression, unspecified; R00.1 Bradycardia, unspecified; R29.701 NIHSS score 1; R47.01 Aphasia; I10 Essential (primary) hypertension; E11.9 Type 2 diabetes mellitus without complications; K21.9 Gastro-esophageal reflux disease without esophagitis; M19.90 Unspecified osteoarthritis, unspecified site; Z79.4 Long term (current) use of insulin; Z85.41 Personal history of malignant neoplasm of cervix uteri; Z90.49 Acquired absence of other specified parts of digestive tract; Z90.710 Acquired absence of both cervix and uterus; Z90.722 Acquired absence of ovaries, bilateral; Z90.79 Acquired absence of other genital organ(s); Z88.8 Allergy status to other drugs, medicaments and biological substances
CPT/HCPCS: 36415; 70450; 70551; 80048; 80053; 80061; 83036; 84443; 85025; 92507; 92523; 93246; 93306; 93880; 97161; 97530; 99285-25; A9270; J0360; J2470

== ENCOUNTER 2024-07-30 05:52 | Inpatient (IN) | payer MEDICARE ==
[~2024-07-30] VITALS: Ht 165.1 cm; Wt 55.7 kg
[~2024-07-30 05:52] MED LIST changes: +ASPI81CH PO; +ATOR80 PO; +CLOP75 PO; +CODACE30 PO; +METF500C PO; +PANT20 PO; -Prinivil10 MG PO; +Zestril30 MG PO
[2024-07-30] MEDS ORDERED: Ondansetron HCl 2 MG / ML 2ML Vial IV ONE (06:10)
[2024-07-30] MEDS ORDERED: FentaNYL Citrate 50 MCG/ML 2 ML Injection IV ONE (06:10)
[2024-07-30] MEDS ORDERED: NS 1,000 ML IV SCH ×2 (06:10→08:35)
[2024-07-30 06:17] LABS: Hematocrit 37.6 % (33.0-51.0); Hemoglobin 12.8 g/dL (11.5-16.0); Mean Corpuscular Volume 88 fL (80-100); Mean Platelet Volume 10.9 fL (9.1-12.4); Platelet Count 273 K/mm3 (150-400); RDW Coefficient Variation 12.8 % (11.7-14.2); Red Blood Cell Count 4.26 M/mm3 (3.80-5.20); White Blood Cell Count 24.87 K/mm3 (4.00-11.30)
[2024-07-30 06:33] LABS: Albumin, Blood 3.1 g/dL (3.4-5.0); Albumin/Globulin Ratio 0.9 (0.8-1.8); Bilirubin, Total 0.7 mg/dL (0.1-1.0); Bun/Creatinine Ratio 13.7 (12.0-20.0); Calcium, Blood 9.5 mg/dL (8.5-10.1); Creatinine, Blood 2.55 mg/dL (0.40-1.00); Globulin, Blood 3.5 g/dL (2.2-4.0); Potassium, Blood 4.1 mmol/L (3.5-5.5); Total Protein, Blood 6.6 g/dL (6.4-8.2)
[2024-07-30 06:37] LABS: BAND PERCENT MAN 17 % (0-8); BASOPHILS PERCENT MAN 0 % (0-2); EOSINOPHILS PERCENT MAN 0 % (0-6); LYMPHOCYTES ABSOLUTE MAN 1.24 K/mm3 (0.84-5.20); LYMPHOCYTES PERCENT MAN 5 % (21-46); MONOCYTES ABSOLUTE MAN 1.24 K/mm3 (0.16-1.47); MONOCYTES PERCENT MAN 5 % (4-13); NEUTROPHILS ABSOLUTE MAN 22.38 K/mm3 (1.96-9.15); SEG NEUTROPHILS PERCENT MAN 73 % (41-73); TOTAL CELLS COUNTED 100
[2024-07-30] MEDS ORDERED: Ciprofloxacin 400MG/D5 200ML 200 ML IV ONE (07:25)
[2024-07-30] MEDS ORDERED: MetroNIDAZOLE 500MG/NS 100 ml 100 ML IV ONE (07:25)
[2024-07-30] MEDS ORDERED: Docusate Sodium 100 MG Cap PO PRN (08:30)
[2024-07-30] MEDS ORDERED: Lactated Ringer's 1,000 ML IV SCH ×2 (08:30→15:15)
[2024-07-30] MEDS ORDERED: FLU VACC TS2024-25(6MOS UP)/PF 45 MCG/0.5 ML SYRINGE IM SCH (08:30)
[2024-07-30] MEDS ORDERED: Ondansetron HCl 2 MG / ML 2ML Vial IV PRN (08:35)
[2024-07-30 10:42] LABS: Source, Urine Clean Catch
[2024-07-30 10:46] LABS: Appearance, Urine Clear (Clear); Bilirubin, Urine Neg (Neg); Blood, Urine 2+ (Neg); Color, Urine Amber (P-Yellow); Glucose Qualitative, Urine Neg (Neg); Ketones, Urine Neg (Neg); Leukocyte Esterase, Urine 2+ (Neg); Nitrite, Urine Neg (Neg); Protein, Urine 2+ (Neg); Urobilinogen, Urine 1+ (Normal)
[2024-07-30 11:02] LABS: Squamous Epithelial Cells Few /hpf (Few)
[2024-07-30 11:03] LABS: Amorphous Light (0-Heavy); Bacteria Few /hpf; Transitional Epithelial Cells Rare /hpf (0-Rare)
[2024-07-30] MEDS ORDERED: FentaNYL Citrate 50 MCG/ML 2 ML Injection IV PRN (13:20)
[2024-07-30 15:30] VITALS: BP 138/58
[2024-07-30] MEDS ORDERED: Acetaminophen 325 MG TABLET PO PRN (16:10)
[2024-07-30] MEDS ORDERED: OxyCODONE HCL 5 MG TAB PO PRN (16:10)
[2024-07-30] MEDS ORDERED: Insulin Human Lispro 100 Units/ML 3ML Syringe SC SCH (16:30)
[2024-07-30] MEDS ORDERED: HYDROmorphone HCl/Pf 1MG SYR IV ONE (17:00)
[2024-07-30] MEDS ORDERED: HYDROmorphone HCl/Pf 1MG SYR IV PRN (17:00)
--- NOTE | 2024-07-30 17:32 | NUR ---
SHIFT SUMMARY PT A NEW ADMIT THIS SHIFT. AOX4 WITH INTERMITTANT CONFUSION. PAINFUL UPON ADMIT TO THE FLOOR, MEDICATED PER THE EMAR FOR PAIN. BA ON. PT CALLS AT TIMES. PT REPOSITIONS SELF IN BED. OTHER THAN THE PAIN, NO OTHER ACUTE COMPLAINTS. PT IS A 1 ASSIST TO THE BSC. CALL LIGHT WITHIN REACH, BED LOCKED AND IN THE LOWEST POSITION. WILL REPORT TO ONCOMING NURSE.
[2024-07-30 19:41] VITALS: BP 113/68
[2024-07-31 02:15] VITALS: BP 150/66
--- NOTE | 2024-07-31 04:26 | NUR ---
Shift Summary Pt rcving LR @ 150. She c/o of LLQ pain and was medicated once with 5mg Oxycodone, pt able to sleep well t/o most of the night. She had one episode of watery diahhrea with blood in the stool which is similar to her BM last night per pt. She is 1 SBA to the BSC, AOx4, cooperative with care.
[2024-07-31 05:54] LABS: Hematocrit 32.8 % (33.0-51.0); Hemoglobin 10.9 g/dL (11.5-16.0); Mean Corpuscular HGB 29.6 pg (26.0-34.0); Mean Corpuscular HGB Conc 33.2 g/dL (31.5-36.5); Mean Corpuscular Volume 89 fL (80-100); Platelet Count 219 K/mm3 (150-400); RDW Coefficient Variation 13.2 % (11.7-14.2); RDW Standard Deviation 43.5 fL (35.1-46.3); Red Blood Cell Count 3.68 M/mm3 (3.80-5.20); White Blood Cell Count 15.64 K/mm3 (4.00-11.30)
[2024-07-31 06:13] LABS: Albumin, Blood 2.7 g/dL (3.4-5.0); Albumin/Globulin Ratio 0.7 (0.8-1.8); Bilirubin, Total 0.5 mg/dL (0.1-1.0); Bun/Creatinine Ratio 18.5 (12.0-20.0); Calcium, Blood 8.5 mg/dL (8.5-10.1); Globulin, Blood 3.7 g/dL (2.2-4.0); Potassium, Blood 4.7 mmol/L (3.5-5.5); Total Protein, Blood 6.4 g/dL (6.4-8.2)
[2024-07-31 06:18] LABS: BAND PERCENT MAN 14 % (0-8); BASOPHILS ABSOLUTE MAN 0.15 K/mm3 (0.00-0.23); BASOPHILS PERCENT MAN 1 % (0-2); EOSINOPHILS PERCENT MAN 0 % (0-6); LYMPHOCYTES ABSOLUTE MAN 0.46 K/mm3 (0.84-5.20); LYMPHOCYTES PERCENT MAN 3 % (21-46); METAMYELOCYTE ABSOLUTE MAN 0.15 K/mm3 (0.00-0.00); METAMYELOCYTE PERCENT MAN 1 % (0-0); MONOCYTES ABSOLUTE MAN 1.56 K/mm3 (0.16-1.47); MONOCYTES PERCENT MAN 10 % (4-13); NEUTROPHILS ABSOLUTE MAN 13.29 K/mm3 (1.96-9.15); SEG NEUTROPHILS PERCENT MAN 71 % (41-73); TOTAL CELLS COUNTED 100
[2024-07-31 07:17] VITALS: BP 126/70
[2024-07-31] MEDS ORDERED: MetroNIDAZOLE 500MG/NS 100 ml 100 ML IV SCH (08:31)
[2024-07-31] MEDS ORDERED: Enoxaparin 40 MG/0.4 ML SYR SC SCH (09:00)
[2024-07-31] MEDS ORDERED: Ciprofloxacin 400MG/D5 200ML 200 ML IV SCH (09:00)
[2024-07-31] MEDS ORDERED: Pantoprazole Sodium 20 MG Tab PO SCH (10:00)
[2024-07-31] MEDS ORDERED: FLUoxetine HCL 20 MG CAP PO SCH (10:00)
[2024-07-31 15:22] LABS: Hematocrit 28.5 % (33.0-51.0); Hemoglobin 9.8 g/dL (11.5-16.0); Mean Corpuscular HGB 30.6 pg (26.0-34.0); Mean Corpuscular HGB Conc 34.4 g/dL (31.5-36.5); Mean Corpuscular Volume 89 fL (80-100); Mean Platelet Volume 10.5 fL (9.1-12.4); Platelet Count 185 K/mm3 (150-400); RDW Coefficient Variation 13.2 % (11.7-14.2); RDW Standard Deviation 43.5 fL (35.1-46.3); White Blood Cell Count 14.87 K/mm3 (4.00-11.30)
[2024-07-31 15:30] VITALS: BP 126/60
[2024-07-31 15:42] LABS: BAND PERCENT MAN 7 % (0-8); BASOPHILS PERCENT MAN 0 % (0-2); EOSINOPHILS PERCENT MAN 0 % (0-6); LYMPHOCYTES ABSOLUTE MAN 0.89 K/mm3 (0.84-5.20); LYMPHOCYTES PERCENT MAN 6 % (21-46); MONOCYTES ABSOLUTE MAN 0.74 K/mm3 (0.16-1.47); MONOCYTES PERCENT MAN 5 % (4-13); NEUTROPHILS ABSOLUTE MAN 13.23 K/mm3 (1.96-9.15); SEG NEUTROPHILS PERCENT MAN 82 % (41-73); TOTAL CELLS COUNTED 100
--- NOTE | 2024-07-31 17:50 | NUR ---
SHIFT SUMMARY PT AOX4, INTERMITTANT CONFUSION. MENTATION HAS IMPROVED TODAY BUT FAIRLY EMOTIONAL THIS AM. PT STATED IT WAS DUE TO HER LACK OF PROZAC, A HOME MED. PROVIDER NOTIFIED AND MEDICATION ADMINISTERED PER THE EMAR. MEDICATED FOR PAIN X1 THIS SHIFT. MEDICATED FOR NAUSEA X1 THIS SHIFT. FRIEND A THE BS. PT REMAINS A 1 ASSIST TO THE BSC, BA ON. PT CALLS BUT HAS URINARY URGENCY. PT REPOSITIONS SELF IN BED. SOME BLOOD IN HER STOOLS, PROVIDER AWARE. CALL LIGHT WITHIN REACH, BED LOCKED AND IN THE LOWEST POSITION. WILL REPORT TO ONCOMING NURSE.
[2024-07-31 19:40] VITALS: BP 140/66
[2024-07-31] MEDS ORDERED: Ciprofloxacin 200MG/100ML 100 ML IV SCH (21:00)
[2024-07-31] MEDS ORDERED: Atorvastatin 40 MG Tab PO SCH (21:00)
[2024-08-01 03:21] VITALS: BP 149/50
--- NOTE | 2024-08-01 04:41 | NUR ---
SHIFT SUMMARY 74 YR F ADMITTED ON 07/30/24. DNR. NO ACUTE CHANGES THIS SHIFT. PT USES BEDSIDE COMMONDE BUT OFTEN DOES NOT CALL FOR ASSISTANCE. SHE HAD ONE LOOSE BM THIS SHIFT THAT HAD NO BLOOD IN IT. NO C/O PAIN, N/V THIS SHIFT. PT HAS SLEPT FOR MOST OF THE NIGHT. NO NEW CHANGES TO REPORT. WILL CONTINUE TO MONITOR. BED IN LOW POSITION WITH ALARM ON, AND CALL LIGHT IN REACH.
[2024-08-01 05:59] LABS: Hematocrit 28.6 % (33.0-51.0); Hemoglobin 9.6 g/dL (11.5-16.0); Mean Corpuscular HGB 30.5 pg (26.0-34.0); Mean Corpuscular HGB Conc 33.6 g/dL (31.5-36.5); Mean Corpuscular Volume 91 fL (80-100); Platelet Count 175 K/mm3 (150-400); RDW Coefficient Variation 13.2 % (11.7-14.2); RDW Standard Deviation 43.7 fL (35.1-46.3); Red Blood Cell Count 3.15 M/mm3 (3.80-5.20); White Blood Cell Count 12.65 K/mm3 (4.00-11.30)
[2024-08-01 06:20] LABS: Albumin, Blood 2.3 g/dL (3.4-5.0); Albumin/Globulin Ratio 0.7 (0.8-1.8); Bilirubin, Total 0.5 mg/dL (0.1-1.0); Bun/Creatinine Ratio 17.3 (12.0-20.0); Calcium, Blood 8.7 mg/dL (8.5-10.1); Creatinine, Blood 1.39 mg/dL (0.40-1.00); Globulin, Blood 3.3 g/dL (2.2-4.0); Potassium, Blood 4.4 mmol/L (3.5-5.5); Total Protein, Blood 5.6 g/dL (6.4-8.2)
[2024-08-01 06:39] LABS: BAND PERCENT MAN 5 % (0-8); BASOPHILS PERCENT MAN 0 % (0-2); EOSINOPHILS ABSOLUTE MAN 0.37 K/mm3 (0.00-0.68); EOSINOPHILS PERCENT MAN 3 % (0-6); LYMPHOCYTES PERCENT MAN 4 % (21-46); MONOCYTES ABSOLUTE MAN 1.39 K/mm3 (0.16-1.47); MONOCYTES PERCENT MAN 11 % (4-13); NEUTROPHILS ABSOLUTE MAN 10.37 K/mm3 (1.96-9.15); SEG NEUTROPHILS PERCENT MAN 77 % (41-73); TOTAL CELLS COUNTED 100
[2024-08-01 07:37] VITALS: BP 151/68
[2024-08-01] MEDS ORDERED: Enoxaparin 40 MG/0.4 ML SYR SC SCH (09:00)
[2024-08-01] MEDS ORDERED: Lisinopril 10 MG Tab PO SCH (09:00)
[2024-08-01] MEDS ORDERED: Aspirin 81 MG Chew PO SCH (09:00)
[2024-08-01] MEDS ORDERED: Clopidogrel Bisulfate 75 MG Tab PO SCH (09:00)
[2024-08-01] MEDS ORDERED: Enoxaparin 30 MG/0.3 ML SYR SC SCH (09:00)
[2024-08-01] MEDS ORDERED: NS 250 ML IV PRN (10:30)
[2024-08-01 11:05] VITALS: BP 160/70
[2024-08-01 16:06] VITALS: BP 143/62
[2024-08-01 20:05] VITALS: BP 185/78
--- NOTE | 2024-08-01 20:07 | NUR ---
NO ACUTE EVENTS DURING SHIFT. SHE IS UP INDEPENDENT NOW TO BEDSIDE COMOMDE, CALLS MISTY. BED IN LOW POSIITON, CALL LIGHT IN REACH.
[2024-08-01] MEDS ORDERED: Ciprofloxacin 400MG/D5 200ML 200 ML IV SCH (21:00)
[2024-08-02 03:23] VITALS: BP 154/72
[2024-08-02 06:13] LABS: BASOPHILS ABSOLUTE AUTO 0.05 K/mm3 (0.00-0.23); BASOPHILS PERCENT AUTO 1 % (0-2); EOSINOPHILS ABSOLUTE AUTO 0.18 K/mm3 (0.00-0.68); EOSINOPHILS PERCENT AUTO 2 % (0-6); Hematocrit 29.6 % (33.0-51.0); Hemoglobin 9.9 g/dL (11.5-16.0); IMMATURE GRAN ABSOLUTE AUTO 0.06 K/mm3 (0.00-0.10); IMMATURE GRAN PERCENT AUTO 1 % (0-1); LYMPHOCYTES ABSOLUTE AUTO 0.83 K/mm3 (0.84-5.20); LYMPHOCYTES PERCENT AUTO 8 % (21-46); MONOCYTES ABSOLUTE AUTO 0.85 K/mm3 (0.16-1.47); MONOCYTES PERCENT AUTO 8 % (4-13); Mean Corpuscular HGB 30.3 pg (26.0-34.0); Mean Corpuscular HGB Conc 33.4 g/dL (31.5-36.5); Mean Corpuscular Volume 91 fL (80-100); Mean Platelet Volume 10.4 fL (9.1-12.4); NEUTROPHILS ABSOLUTE AUTO 8.92 K/mm3 (1.96-9.15); NEUTROPHILS PERCENT AUTO 82 % (41-73); Platelet Count 194 K/mm3 (150-400); RDW Coefficient Variation 12.8 % (11.7-14.2); RDW Standard Deviation 42.3 fL (35.1-46.3); Red Blood Cell Count 3.27 M/mm3 (3.80-5.20); White Blood Cell Count 10.89 K/mm3 (4.00-11.30)
--- NOTE | 2024-08-02 06:28 | NUR ---
SHIFT SUMMARY: Pt admitted for sepsis and is a DNR. is alert and able to make needs known. ADLs have been mostly SBA. pain has been managed with PRN medication.
[2024-08-02 06:35] LABS: Albumin, Blood 2.4 g/dL (3.4-5.0); Albumin/Globulin Ratio 0.7 (0.8-1.8); Bilirubin, Total 0.5 mg/dL (0.1-1.0); Bun/Creatinine Ratio 15.2 (12.0-20.0); Calcium, Blood 8.5 mg/dL (8.5-10.1); Creatinine, Blood 1.05 mg/dL (0.40-1.00); Globulin, Blood 3.4 g/dL (2.2-4.0); Potassium, Blood 3.9 mmol/L (3.5-5.5); Total Protein, Blood 5.8 g/dL (6.4-8.2)
[2024-08-02 07:39] VITALS: BP 194/81
[2024-08-02 11:22] VITALS: BP 184/88
[2024-08-02] MEDS ORDERED: HydrALAZINE HCl 20 MG / ML 1ML Vial IV PRN (12:05)
[2024-08-02 12:52] VITALS: BP 140/58
[2024-08-02] MEDS ORDERED: AmLODIPine Besylate 5 MG Tab PO SCH (14:00)
[2024-08-02 16:00] VITALS: BP 151/62
--- NOTE | 2024-08-02 16:34 | NUR ---
PT FAMILY DR CALLED. DR BEV KIRKLAND. STATES PT LIVE ALONE, NO CAREGIVER, LIVES IN A [place], THAT APPARENTLY HAS SEVERAL METAL STEPS. DR CONCERNED THAT IT MIGHT NOT BE SAFE TO GO STRAIGHT HOME. CARTAGENA DR DIMAS, UPDATED WITH NEW INFO. STATES COULD ORDER PT/OT EVAL
--- NOTE | 2024-08-02 17:16 | NUR ---
PT PLEASANT TODAY. ANIMATED AND LAUGHING. DID WALK HALLS SOME TODAY , MIN FOOT DROP NOTED. DID AMBULATE SBA TO BATHROOM TODAY. LEFT LEG SOME WEAKER THAN RT. HER PCP CALLED AND RELAYED INFO IN PRIOR NOTE. ORDERING PT/OT. PLAN FOR DISCHARGE WHEN BP STABLE. BED IN LOW POSITION, CALL LITE IN REACH, CALLS APROP
[2024-08-02] MEDS ORDERED: AMLODIPINE BES2.5 MG PO (18:39)
[2024-08-02 20:44] VITALS: BP 172/74
[2024-08-03 03:57] VITALS: BP 164/89
[2024-08-03 06:37] LABS: BASOPHILS ABSOLUTE AUTO 0.06 K/mm3 (0.00-0.23); BASOPHILS PERCENT AUTO 1 % (0-2); EOSINOPHILS PERCENT AUTO 3 % (0-6); Hematocrit 30.7 % (33.0-51.0); Hemoglobin 10.5 g/dL (11.5-16.0); IMMATURE GRAN ABSOLUTE AUTO 0.11 K/mm3 (0.00-0.10); IMMATURE GRAN PERCENT AUTO 1 % (0-1); LYMPHOCYTES ABSOLUTE AUTO 0.87 K/mm3 (0.84-5.20); LYMPHOCYTES PERCENT AUTO 9 % (21-46); MONOCYTES PERCENT AUTO 11 % (4-13); Mean Corpuscular HGB 30.3 pg (26.0-34.0); Mean Corpuscular HGB Conc 34.2 g/dL (31.5-36.5); Mean Corpuscular Volume 89 fL (80-100); Mean Platelet Volume 10.6 fL (9.1-12.4); NEUTROPHILS ABSOLUTE AUTO 7.47 K/mm3 (1.96-9.15); NEUTROPHILS PERCENT AUTO 75 % (41-73); Platelet Count 230 K/mm3 (150-400); RDW Coefficient Variation 12.9 % (11.7-14.2); RDW Standard Deviation 42.1 fL (35.1-46.3); Red Blood Cell Count 3.46 M/mm3 (3.80-5.20); White Blood Cell Count 9.91 K/mm3 (4.00-11.30)
[2024-08-03 06:53] LABS: Albumin, Blood 2.3 g/dL (3.4-5.0); Anion Gap 11 mmol/L (3-11); Blood Urea Nitrogen 11 mg/dL (8-24); Bun/Creatinine Ratio 11.9 (12.0-20.0); CO2, Blood 24 mmol/L (21-32); Calcium, Blood 8.4 mg/dL (8.5-10.1); Chloride, Blood 109 mmol/L (98-108); Creatinine, Blood 0.92 mg/dL (0.40-1.00); Glomerular Filtration Rate 65 (60-); Glucose, Blood 151 mg/dL (70-99); Magnesium, Blood 1.4 mg/dL (1.6-2.4); Phosphorus, Blood 2.5 mg/dL (2.5-4.9); Potassium, Blood 3.7 mmol/L (3.5-5.5); Sodium, Blood 140 mmol/L (136-145)
[2024-08-03 07:39] VITALS: BP 184/75
[2024-08-03] MEDS ORDERED: Lisinopril 10 MG Tab PO ONE (09:00)
[2024-08-03 11:37] VITALS: BP 166/76
[2024-08-03 15:12] VITALS: BP 165/79
[2024-08-03] MEDS ORDERED: ASPI81CH PO (15:34)
[2024-08-03] MEDS ORDERED: ATOR80 PO (15:34)
[2024-08-03] MEDS ORDERED: PANT20 PO (15:35)
[2024-08-03] MEDS ORDERED: CIPR500 PO (15:35)
[2024-08-03] MEDS ORDERED: METR500 PO (15:36)
[2024-08-03] MEDS ORDERED: VISBIOME 112.51 EACH PO (15:37)
--- NOTE | 2024-08-03 16:22 | NUR ---
DISCHARGE REVIEWED WT PT. SHE VERBALIZED UNDERSTANDING MEDS AND INST. DISCUSSED NEW MEDS. NO TELE. PEND PT TO DRESS SELF.
--- NOTE | 2024-08-03 17:16 | NUR ---
PT IV PULLED BY RAN. DISCHARGING. PT DRESSED AND WHEELED TO DOOR AT 1718
== END 2024-08-03 17:28 | disposition home or self-care (01) | DRG 871 ==
LOC: ER 05:52 → ERHOLD 08:27 → MEDS 15:13 → ENPENDDIS 08-03 13:45 → MEDS 08-03 17:28
PROVIDERS: Emergency Medicine; ADMIT Family Medicine
DX: A41.9 Sepsis, unspecified organism (principal); R65.21 Severe sepsis with septic shock; A09 Infectious gastroenteritis and colitis, unspecified; N17.9 Acute kidney failure, unspecified; I16.0 Hypertensive urgency; K21.9 Gastro-esophageal reflux disease without esophagitis; I10 Essential (primary) hypertension; E78.5 Hyperlipidemia, unspecified; F32.A Depression, unspecified; Z66 Do not resuscitate; E86.0 Dehydration; E11.65 Type 2 diabetes mellitus with hyperglycemia; M19.90 Unspecified osteoarthritis, unspecified site; Z86.73 Personal history of transient ischemic attack (TIA), and cerebral infarction without residual deficits; Z88.5 Allergy status to narcotic agent; Z79.82 Long term (current) use of aspirin; Z79.84 Long term (current) use of oral hypoglycemic drugs; Z79.02 Long term (current) use of antithrombotics/antiplatelets; Z85.41 Personal history of malignant neoplasm of cervix uteri
CPT/HCPCS: 36415; 74177; 80053; 80069; 81001; 82947; 83605; 83690; 83735; 85025; 87040; 87086; 93005; 93010; 94760; 96361; 96374-59; 96375; 97116; 97161; 97530; 99285-25; A9270; J0360; J0744; J1171; J2405; J2470; J3010; J7030; J7050; J7120; Q9967

== ENCOUNTER 2025-04-28 13:11 | Inpatient (IN) | payer MEDICARE ==
[~2025-04-28] VITALS: Ht 165.1 cm; Wt 52.1 kg
[~2025-04-28 13:11] MED LIST changes: +AMLODIPINE BES2.5 MG PO; +CIPR500 PO; +METR500 PO
[2025-04-28] MEDS ORDERED: FentaNYL Citrate 50 MCG/ML 2 ML Injection IV ONE (13:50)
[2025-04-28] MEDS ORDERED: Morphine Sulfate 4 MG/1 ML Injection IV ONE (13:50)
[2025-04-28] MEDS ORDERED: NS 1,000 ML IV SCH (13:50)
[2025-04-28 14:01] LABS: BASOPHILS ABSOLUTE AUTO 0.14 K/mm3 (0.00-0.23); BASOPHILS PERCENT AUTO 1 % (0-2); EOSINOPHILS ABSOLUTE AUTO 0.02 K/mm3 (0.00-0.68); EOSINOPHILS PERCENT AUTO 0 % (0-6); Hematocrit 43.8 % (33.0-51.0); Hemoglobin 14.0 g/dL (11.5-16.0); IMMATURE GRAN ABSOLUTE AUTO 0.22 K/mm3 (0.00-0.10); IMMATURE GRAN PERCENT AUTO 1 % (0-1); LYMPHOCYTES ABSOLUTE AUTO 2.02 K/mm3 (0.84-5.20); LYMPHOCYTES PERCENT AUTO 8 % (21-46); MONOCYTES ABSOLUTE AUTO 1.95 K/mm3 (0.16-1.47); MONOCYTES PERCENT AUTO 8 % (4-13); Mean Corpuscular HGB Conc 32.0 g/dL (31.5-36.5); Mean Corpuscular Volume 94 fL (80-100); NEUTROPHILS ABSOLUTE AUTO 21.21 K/mm3 (1.96-9.15); NEUTROPHILS PERCENT AUTO 83 % (41-73); NRBC ABSOLUTE 0.00 K/mm3 (0.00-0.02); NRBC Auto 0.0 /100 WBC (0.0-0.2); Platelet Count 281 K/mm3 (150-400); RDW Coefficient Variation 13.5 % (11.7-14.2); RDW Standard Deviation 46.8 fL (35.1-46.3)
[2025-04-28 14:18] LABS: Alanine Aminotransfer (ALT/SGP 18.0 U/L (12-78); Albumin, Blood 3.6 g/dL (3.4-5.0); Albumin/Globulin Ratio 1.0 (0.8-1.8); Anion Gap 19.0 mmol/L (3-11); Aspartate Aminotrans (AST/SGOT 31.0 U/L (12-37); Bilirubin, Total 0.6 mg/dL (0.1-1.0); Blood Urea Nitrogen 26.0 mg/dL (8-24); CO2, Blood 19.0 mmol/L (21-32); Calcium, Blood 9.8 mg/dL (8.5-10.1); Chloride, Blood 108.0 mmol/L (98-108); Creatinine, Blood 1.62 mg/dL (0.40-1.00); Globulin, Blood 3.7 g/dL (2.2-4.0); Glucose, Blood 226.0 mg/dL (70-99); Magnesium, Blood 2.8 mg/dL (1.6-2.4); Potassium, Blood 5.0 mmol/L (3.5-5.5); Sodium, Blood 141.0 mmol/L (136-145); Total Protein, Blood 7.3 g/dL (6.4-8.2)
[2025-04-28] MEDS ORDERED: Pantoprazole Sodium 40 MG Injection IV ONE (15:15)
[2025-04-28] MEDS ORDERED: FLU VACC TS2025(65UP)/MF59C/PF 45 MCG/0.5 ML SYRINGE IM SCH (16:05)
[2025-04-28] MEDS ORDERED: Prochlorperazine Edisylate 10 mg Vial IV PRN (16:10)
[2025-04-28] MEDS ORDERED: MetroNIDAZOLE 500MG/NS 100 ml 100 ML IV SCH (16:18)
[2025-04-28] MEDS ORDERED: Insulin Human Lispro 100 Units/ML 3ML Syringe SC SCH (16:30)
[2025-04-28 17:27] VITALS: BP 108/74
--- NOTE | 2025-04-28 17:56 | NUR ---
ASSUMPTION OF CARE: RECEIVED REPORT FROM JENNIFER LEWIS, PT ARRIVED AT APPROX 1720. A/O X4, ABLE TO MAKE NEEDS KNOWN. STRENGTH EQUAL BILATERAllY. PT C/O 10/10 ABDOMINAL PAIN AND NAUSEA, MEDICATED PER EMAR AND GAVE HEATING PAD. BOWEL SOUNDS HYPOACTIVE, STOMACH FIRM AND PAINFUL TO TOUCH. ASSISTED PT TO BSC FOR BOWEL MOVEMENT. STOOL LOOSE WITH BLOOD, SAMPLE COLLECTED AND SENT TO LAB PER ORDER. ROOM AIR, SATS >95%. SR 80s, DENIES CHEST PAIN/PRESSURE. VITAL SIGNS STABLE. PT LYING IN BED, CALL WITHIN REACH.
[2025-04-28] MEDS ORDERED: Ciprofloxacin 400MG/D5 200ML 200 ML IV SCH (18:00)
[2025-04-28 19:37] VITALS: BP 93/55
[2025-04-28 20:22] LABS: Campylobacter Sp Not Detected (NOT DETECT); E. Coli O157 Not Detected (NOT DETECT); Enteroaggregative E. coli-EAEC Not Detected (NOT DETECT); Enteropathogenic E. coli-EPEC Not Detected (NOT DETECT); Enterotoxigenic E. coli-ETEC Not Detected (NOT DETECT); Salmonella Sp Not Detected (NOT DETECT); Shiga Toxin-prod E. coli-STEC Not Detected (NOT DETECT); Shigella/Enteroin E. coli-EIEC Not Detected (NOT DETECT); Vibrio Sp Not Detected (NOT DETECT)
[2025-04-28 23:51] VITALS: BP 104/50
[2025-04-29] VITALS (16 sets, daily range): BP systolic 70–138; BP diastolic 41–70
[2025-04-29 03:15] LABS: Hematocrit 33.9 % (33.0-51.0); Hemoglobin 11.1 g/dL (11.5-16.0); Mean Corpuscular HGB Conc 32.7 g/dL (31.5-36.5); NRBC ABSOLUTE 0.00 K/mm3 (0.00-0.02); NRBC Auto 0.0 /100 WBC (0.0-0.2); Platelet Count 217 K/mm3 (150-400); RDW Coefficient Variation 14.0 % (11.7-14.2); RDW Standard Deviation 45.1 fL (35.1-46.3)
--- NOTE | 2025-04-29 03:16 | NUR ---
NURSE NOTE PT BP 72/54 (MANUAL BP), SEE LABS FOR OTHER BP'S. PT MENTATION DECLINDED SINCE LAST INTERACTION PATIENT NOT ABLE TO TELL ME DATE, WHERE SHE LIVES, WHY SHE IS HERE. ALL QUESTIONS WHICH SHE ASNWERED AT START OF SHIFT. SHE IS ABLE TO STATE HER NAME AND STILL. RESIDENT MD WOLFE CALLED TWICE OVER THE PHONE, SECOND TIME SHE ANSWERED, AWAITING ORDERS.
[2025-04-29 03:22] LABS: Mean Corpuscular Volume 89 fL (80-100)
[2025-04-29] MEDS ORDERED: NS 500 ML IV ONE (03:23)
[2025-04-29] MEDS ORDERED: NS 500 ML IV SCH (03:25)
[2025-04-29 03:30] LABS: Magnesium, Blood 2.1 mg/dL (1.6-2.4)
[2025-04-29 03:34] LABS: Albumin, Blood 2.7 g/dL (3.4-5.0); Anion Gap 12 mmol/L (3-11); Blood Urea Nitrogen 36 mg/dL (8-24); CO2, Blood 20 mmol/L (21-32); Calcium, Blood 8.2 mg/dL (8.5-10.1); Chloride, Blood 108 mmol/L (98-108); Creatinine, Blood 2.32 mg/dL (0.40-1.00); Glucose, Blood 200 mg/dL (70-99); Phosphorus, Blood 5.7 mg/dL (2.5-4.9); Sodium, Blood 134 mmol/L (136-145)
[2025-04-29 03:51] LABS: Potassium, Blood 6.1 mmol/L (3.5-5.5)
[2025-04-29] MEDS ORDERED: Insulin Regular 100 UNIT/ML 10ML Vial IV ONE (04:45)
[2025-04-29] MEDS ORDERED: Sodium Bicarb 8.4% 1 MEQ/ML 50 ML Vial IV ONE (04:50)
[2025-04-29] MEDS ORDERED: Calcium Gluconate 10% 100 MG/ML INJ IV ONE (05:00)
[2025-04-29] MEDS ORDERED: D5W-1/2NS 1,000 ML IV SCH (05:10)
[2025-04-29] MEDS ORDERED: CALCIUM GLUC IN NACL, ISO-OSM 50 ML IV ONE (05:25)
--- NOTE | 2025-04-29 06:42 | NUR ---
NOC SHIFT SUMMARY PT IS A+O X4, DURING THE NIGHT SHE HAD A PERIOD OF MENTATION CHANGES. BP WAS FOUND TO BE SOFT, 500MLS BOULS GIVEN. REQUESTED MORNING LABS TO BE DRAWN EARLIER POTASSIUM WAS FOUND TO BE 6.1, ORDERED A REPEAT THAT CAME BACK AT 6.4. ORDERS OBTAINED. LA THIS AM OF 2.7. POWERGLIDE TO THE RUE BY PHOTO CHECKER. MENTATION IMPROVED, BP STABLE. PT WEARING 2L NC SATTING AT 93% CURRENTLY (DOES NOT WEAR OXYGEN NORMALLY). BREATHING EVEN AND UNLABORED. DENIES NEEDS AT THIS TIME. BED IN LOW. CALL LIGHT IN REACH.
[2025-04-29 08:54] LABS: Anion Gap 12.0 mmol/L (3-11); Blood Urea Nitrogen 38.0 mg/dL (8-24); CO2, Blood 21.0 mmol/L (21-32); Calcium, Blood 8.4 mg/dL (8.5-10.1); Chloride, Blood 107.0 mmol/L (98-108); Creatinine, Blood 2.35 mg/dL (0.40-1.00); Glucose, Blood 178.0 mg/dL (70-99); Potassium, Blood 5.4 mmol/L (3.5-5.5); Sodium, Blood 135.0 mmol/L (136-145)
[2025-04-29] MEDS ORDERED: Enoxaparin 30 MG/0.3 ML SYR SC SCH (09:00)
[2025-04-29] MEDS ORDERED: AMLO5 PO (10:15)
[2025-04-29] MEDS ORDERED: Acetaminophen/Codeine 300-30 mg PO PRN (11:20)
[2025-04-29] MEDS ORDERED: DIPH50 PO (14:09)
[2025-04-29 14:23] LABS: Hematocrit 29.5 % (33.0-51.0); Hemoglobin 9.8 g/dL (11.5-16.0); Mean Corpuscular HGB Conc 33.2 g/dL (31.5-36.5); Mean Corpuscular Volume 90 fL (80-100); NRBC ABSOLUTE 0.00 K/mm3 (0.00-0.02); NRBC Auto 0.0 /100 WBC (0.0-0.2); Platelet Count 188 K/mm3 (150-400); RDW Coefficient Variation 14.1 % (11.7-14.2); RDW Standard Deviation 46.2 fL (35.1-46.3)
[2025-04-29 14:37] LABS: Anion Gap 11.0 mmol/L (3-11); Blood Urea Nitrogen 39.0 mg/dL (8-24); CO2, Blood 22.0 mmol/L (21-32); Calcium, Blood 8.0 mg/dL (8.5-10.1); Chloride, Blood 105.0 mmol/L (98-108); Creatinine, Blood 2.24 mg/dL (0.40-1.00); Glucose, Blood 188.0 mg/dL (70-99); Potassium, Blood 5.0 mmol/L (3.5-5.5); Sodium, Blood 133.0 mmol/L (136-145)
--- NOTE | 2025-04-29 18:14 | NUR ---
SHIFT SUMMARY PATIENT IS ALERT AND ORIENTED TO SELF, PERSON, AND PLACE. PATIENT INTERMITTENTLY CONFUSED REGARDING TIME OF DAY AND SITUATION. VSS, TELE IN PLACE, SINUS 70'S, SPO2 >90% ON RA, REQUIRES 1-2L VIA NC WHILE SLEEPING. PATIENT DENIES PRESENCE OF CHEST PAIN OR PRESSURE. MULTIPLE MAROON, MUCOID STOOLS THIS SHIFT, PATIENT REPORTS LLQ TENDERNESS UPON PALPATION. GI CONSULTED THIS SHIFT, COLONOSCOPY TO BE PERFORMED 04/30/25 PER PROVIDER. PATIENT IS A SBA WITH A FWW TO THE BEDSIDE COMMODE, CALLS APPROPRIATELY. PATIENT IS UP IN BED, BED IN LOWEST POSITION, CALL LIGHT WITHIN REACH, BED ALARM ARMED.
[2025-04-29] MEDS ORDERED: Peg/Electrolytes 4,000 ML BTL PO SCH ×2 (20:00→20:30)
[2025-04-29 20:44] LABS: Hematocrit 28.5 % (33.0-51.0); Hemoglobin 9.4 g/dL (11.5-16.0); Mean Corpuscular HGB Conc 33.0 g/dL (31.5-36.5); Mean Corpuscular Volume 90 fL (80-100); NRBC ABSOLUTE 0.00 K/mm3 (0.00-0.02); NRBC Auto 0.0 /100 WBC (0.0-0.2); Platelet Count 176 K/mm3 (150-400); RDW Coefficient Variation 14.1 % (11.7-14.2); RDW Standard Deviation 46.3 fL (35.1-46.3)
[2025-04-30] VITALS (10 sets, daily range): BP systolic 114–183; BP diastolic 61–92
[2025-04-30 02:41] LABS: Hematocrit 26.4 % (33.0-51.0); Hemoglobin 8.8 g/dL (11.5-16.0); Mean Corpuscular HGB Conc 33.3 g/dL (31.5-36.5); Mean Corpuscular Volume 89 fL (80-100); NRBC ABSOLUTE 0.00 K/mm3 (0.00-0.02); NRBC Auto 0.0 /100 WBC (0.0-0.2); Platelet Count 162 K/mm3 (150-400); RDW Coefficient Variation 13.9 % (11.7-14.2); RDW Standard Deviation 45.1 fL (35.1-46.3)
[2025-04-30 02:56] LABS: Albumin, Blood 2.4 g/dL (3.4-5.0); Anion Gap 7 mmol/L (3-11); Blood Urea Nitrogen 29 mg/dL (8-24); CO2, Blood 25 mmol/L (21-32); Calcium, Blood 8.0 mg/dL (8.5-10.1); Chloride, Blood 108 mmol/L (98-108); Creatinine, Blood 1.56 mg/dL (0.40-1.00); Glucose, Blood 191 mg/dL (70-99); Magnesium, Blood 1.9 mg/dL (1.6-2.4); Phosphorus, Blood 3.2 mg/dL (2.5-4.9); Potassium, Blood 4.2 mmol/L (3.5-5.5); Sodium, Blood 136 mmol/L (136-145)
--- NOTE | 2025-04-30 06:31 | NUR ---
NOC SHIFT SUMMARY PT IS A+OX4 ABLE TO MAKE NEEDS KNOWN, USES CALL LIGHT. PT IS A ONE PERSON TRANSFER TO THE BSC W/FWW. SHE WAS ABLE TO REST ON AND OFF IN BETWEEN CARES LAST NIGHT. VSS, MAP >65, DENEIS CHEST PAIN OR PRESSURE. SHE DID DESAT A FEW TIMES DURING THE NIGHT AND WAS PLACED ON 1L NC, ABLE TO TAKE THAT OFF WHILE AWAKE. PT HAD MULTIPLE BM'S DURING THE NIGHT. BM IS BROWN IN COLOR AND FULL LIQUID. SHE HAS HAD ISSUES WITH MAKING IT TO THE BSC AT TIMES AND WENT IN HER BRIEF. NO COMPLAINTS OF ABDOMEN PAIN THIS SHIFT. SHE DID HOWEVER ENDORSE BACK PAIN FROM BEING IN THE BED, HELPED HER TO GET COMFORTABLE AND USE THE HEATING PAD. SHE IS TO GO GET A SCPOE TODAY DR. LOCK ROUNDED ON HER LAST NIGHT. SECOND HALF OF GOLYTELY TO BE GIVEN AT 0800. BED IN LOWEST POSTION, BED ALARM ON FOR SAFETY. CALL LIGHT IN REACH.
[2025-04-30] MEDS ORDERED: Peg/Electrolytes 4,000 ML BTL PO ONE ×2 (08:00→12:10)
[2025-04-30] MEDS ORDERED: Peg/Electrolytes 4,000 ML BTL PO SCH (08:00)
[2025-04-30 09:02] LABS: Hematocrit 28.0 % (33.0-51.0); Hemoglobin 9.2 g/dL (11.5-16.0); Mean Corpuscular HGB Conc 32.9 g/dL (31.5-36.5); Mean Corpuscular Volume 91 fL (80-100); NRBC ABSOLUTE 0.00 K/mm3 (0.00-0.02); NRBC Auto 0.0 /100 WBC (0.0-0.2); Platelet Count 172 K/mm3 (150-400); RDW Coefficient Variation 14.1 % (11.7-14.2); RDW Standard Deviation 46.5 fL (35.1-46.3)
--- NOTE | 2025-04-30 10:39 | NUR ---
AOC: PATIENT IS ALERT AND ORIENTED TO SELF, PERSON, AND PLACE. PATIENT INTERMITTENTLY CONFUSED REGARDING TIME OF DAY AND SITUATION. HOWEVER IMPROVING WELL. MILD HTN THIS AM BEFORE AM BP MED, TELE IN PLACE, SINUS 70'S, SPO2 >90% ON RA, REQUIRES 1-2L VIA NC WHILE SLEEPING. PATIENT DENIES PRESENCE OF CHEST PAIN OR PRESSURE. MULTIPLE MAROON, MUCOID STOOLS FOR LOADING MANAGER, PATIENT REPORTS LLQ TENDERNESSNO LONGER PRESENT. GI COLONOSCOPY TO BE PERFORMED 04/30/25 PER PROVIDER. PATIENT IS A SBA WITH A FWW TO THE BEDSIDE COMMODE, CALLS APPROPRIATELY. PATIENT IS UP IN BED, BED IN LOWEST POSITION, CALL LIGHT WITHIN REACH, BED ALARM ARMED.
[2025-04-30 14:28] LABS: Hematocrit 29.6 % (33.0-51.0); Hemoglobin 9.8 g/dL (11.5-16.0); Mean Corpuscular HGB Conc 33.1 g/dL (31.5-36.5); Mean Corpuscular Volume 90 fL (80-100); NRBC ABSOLUTE 0.00 K/mm3 (0.00-0.02); NRBC Auto 0.0 /100 WBC (0.0-0.2); Platelet Count 178 K/mm3 (150-400); RDW Coefficient Variation 13.9 % (11.7-14.2); RDW Standard Deviation 46.0 fL (35.1-46.3)
--- NOTE | 2025-04-30 18:17 | NUR ---
04/30/25 [address] MARTIN, SEE ANESTHESIA RECORDS
--- NOTE | 2025-04-30 19:22 | NUR ---
eos: patient was able to tolerate 3l of golytle from this rn to clear. patietn down to colonoscpoy ~0430, and at eos was not back. patient pending abx night rn aware. patient has been alert and oriented x 4 able to make needs known, no acute concerns noted past this. vss cooperative, improving in strength. infusing d5 1/2ns with a break during procedure, held noon dose of insulin due to potential time, but due to not completely clear was pushed back. evening dose held due to procedure. no acute concerns noted at this time.
[2025-04-30] MEDS ORDERED: HydrALAZINE HCl 20 MG / ML 1ML Vial IV ONE (19:55)
[2025-05-01 04:42] VITALS: BP 141/63
[2025-05-01 05:10] LABS: Hematocrit 26.1 % (33.0-51.0); Hemoglobin 8.4 g/dL (11.5-16.0); Mean Corpuscular HGB Conc 32.2 g/dL (31.5-36.5); Mean Corpuscular Volume 91 fL (80-100); NRBC ABSOLUTE 0.00 K/mm3 (0.00-0.02); NRBC Auto 0.0 /100 WBC (0.0-0.2); Platelet Count 170 K/mm3 (150-400); RDW Coefficient Variation 13.8 % (11.7-14.2); RDW Standard Deviation 46.3 fL (35.1-46.3)
[2025-05-01 05:26] LABS: Alanine Aminotransfer (ALT/SGP 12.0 U/L (12-78); Albumin, Blood 2.4 g/dL (3.4-5.0); Albumin/Globulin Ratio 0.9 (0.8-1.8); Anion Gap 11.0 mmol/L (3-11); Aspartate Aminotrans (AST/SGOT 29.0 U/L (12-37); Bilirubin, Total 0.3 mg/dL (0.1-1.0); Blood Urea Nitrogen 11.0 mg/dL (8-24); CO2, Blood 21.0 mmol/L (21-32); Calcium, Blood 8.5 mg/dL (8.5-10.1); Chloride, Blood 110.0 mmol/L (98-108); Creatinine, Blood 1.0 mg/dL (0.40-1.00); Globulin, Blood 2.7 g/dL (2.2-4.0); Glucose, Blood 236.0 mg/dL (70-99); Magnesium, Blood 1.8 mg/dL (1.6-2.4); Potassium, Blood 3.9 mmol/L (3.5-5.5); Sodium, Blood 138.0 mmol/L (136-145); Total Protein, Blood 5.1 g/dL (6.4-8.2)
--- NOTE | 2025-05-01 07:14 | NUR ---
SHIFT SUMMARY: PT ARRIVED BACK FROM PROCEDURE AT START OF SHIFT. PT A&OX4 CALM AND COOPERATIVE. HYPERTENSIVE SBP 180S. MAINTAINED >90% ON RA. APPPLIED 2L NC D/T DESATTING WHILE SLEEPING. PROVIDER NOTIFIED OF BP AND ORDERED 10 MG IV HYDRALAZINE X1. MEDICATED PER ORDER. SBP 110S-140S. PT CONTINUES TO HAVE SMALL, LOOSE, LIQUID STOOLS. 1 PERSON ASSIST W/ FWW TO BSC. PT TOLERATING DIET. BED IS LOW AND LOCKED. CALL LIGHT WITHIN REACH. REPORT GIVEN TO DAY SHIFT NURSE.
--- NOTE | 2025-05-01 07:53 | NUR ---
ASSUPTION NOTE: THIS RN TO ASSUME CARE OF PAISHIN. PAIENT IS SATITNG >92% ON ROOM AIR & ALERT AND ORIENTED X4. PAITENT DENIED ANY PAIN AT THIS TIME, AWAIITNG FOR BREAKFAST TO COME IN. CALL LIGHT WITHIN REACH, BED IN LOWEST LOCKED POSITON & STATING NOTHING ELSE IS NEEDED AT [facility].
--- NOTE | 2025-05-01 08:32 | NUR ---
ROUNDED: ROUNDED AND GAVE VERBAL ORDER TO STOP FLUIDS PAIENT IS DRINKING & EATING WELL WALKING TO THE BATHROOM WITH STAND BY ASSIST. PLAN WILL BE TO SEE WHAT GI STATES REGARDING COURSE AFTER SCOPE BUT MD YIN GAVE VERBAL ORDER FOR PAIENT TO DOWNGRADE TO MEDICAL STATUS.
[2025-05-01 08:42] VITALS: BP 163/119
[2025-05-01] MEDS ORDERED: Ciprofloxacin 400MG/D5 200ML 200 ML IV SCH (09:00)
[2025-05-01 11:51] VITALS: BP 165/74
[2025-05-01 15:27] VITALS: BP 146/67
--- NOTE | 2025-05-01 17:48 | NUR ---
SHIFT SUMMARY: PATIENT IS ALERT AND ORIENTED X4 & COOPERATIVE WITH HER CARE, IS ABLE TO MAKE NEEDS KNOWN. IS SATTING >92% ON ROOM AIR. TONYA WAS SEEN BY ASHVIN & AWAITING RESULTS FOR BIOPSY BUT GAVE OK TO DISCHARGE TOMORROW FROM HIS STANDPOINT. MD YIN IS AWARE AND PLAN WILL BE TO DISCHARGE TOMORROW. TONYA WAS COVERED WITH INSULIN THORUHGOUT THE SHIFT FOR ELEVATED BLOOD SUGARS, SEE EMAR FOR MORE INFORMATION. TONYA WORKED WITH PHYSICAL THERAPY TODAY. IS A STAND BY ASSIST WITH FRONT WHEELED WALKER & AMBULATED TO THE BATHROOM WITHOUT ANY TROUBLE. TONYA AWARE THAT OUTPAIENT WILL CONTACT HER WITH THE RESULTS. TONYA CURRENTL SITTING UP IN BED,EATING DINNER,CALL LIGHT WITHIN REACH, BED IN LOWEST LOCKED POSITION & STATING NOTHING ELSE IS NEEDED AT THIS TIME.
[2025-05-01] MEDS ORDERED: Peg 400/Hypromellose/Glycerin 15 DROP/ML BTL BOTHEYES PRN (19:55)
[2025-05-01 20:22] LABS: C-REACTIVE PROTEIN, EXT RANGE 10.1 mg/dL (0.000-0.300)
[2025-05-01 20:29] VITALS: BP 175/69
[2025-05-01 20:34] LABS: C-Reactive Protein, High Sens. 91.1 mg/L (0.000-3.000)
[2025-05-02 04:06] VITALS: BP 177/81
[2025-05-02 05:05] LABS: Hematocrit 28.6 % (33.0-51.0); Hemoglobin 9.3 g/dL (11.5-16.0); Mean Corpuscular HGB Conc 32.5 g/dL (31.5-36.5); Mean Corpuscular Volume 92 fL (80-100); NRBC ABSOLUTE 0.00 K/mm3 (0.00-0.02); NRBC Auto 0.0 /100 WBC (0.0-0.2); Platelet Count 183 K/mm3 (150-400); RDW Coefficient Variation 13.8 % (11.7-14.2); RDW Standard Deviation 46.4 fL (35.1-46.3)
[2025-05-02 06:04] LABS: Albumin, Blood 2.6 g/dL (3.4-5.0); Anion Gap 6 mmol/L (3-11); Blood Urea Nitrogen 10 mg/dL (8-24); CO2, Blood 26 mmol/L (21-32); Calcium, Blood 8.4 mg/dL (8.5-10.1); Chloride, Blood 111 mmol/L (98-108); Creatinine, Blood 0.95 mg/dL (0.40-1.00); Glucose, Blood 136 mg/dL (70-99); Phosphorus, Blood 2.6 mg/dL (2.5-4.9); Potassium, Blood 3.8 mmol/L (3.5-5.5); Sodium, Blood 139 mmol/L (136-145)
--- NOTE | 2025-05-02 06:19 | NUR ---
SHIFT SUMMARY PATIENT ALERT AND ORIENTED X4. HAD NO COMPLAINTS OF PAIN OR SHORTNESS OF BREATH. ON ROOM AIR WITH SPO2 >90%. HYPERTENSION NOTED. WILL CONTINUE TO MONITOR. CALL LIGHT WITHIN REACH.
[2025-05-02 08:04] VITALS: BP 195/76
[2025-05-02 08:24] VITALS: BP 192/80
--- NOTE | 2025-05-02 08:48 | NUR ---
ROUNDED: RESIDENT TEAM ROUNDED & SPOKE WITH TONYA AND FAMILY AT BEDSIDE. AWARE THAT ECHO WILL BE DONE TODAY & AFTER THAT THEY WILL PLACE ORDERS FOR CONSULT REGARDING IR & CARDIOLGOY. RONNIESHIN IS CURRENTLY NPO AT THIS TIME.
--- NOTE | 2025-05-02 08:51 | NUR ---
ASSUMPTION NOTE THIS RN TO ASSUME CARE OF TONYA. TONYA ALERT AND ORIENTED X4 & COOPERATIVE WITH HER CARE. MD ROUNDED AND PLAN WILL BE TO DISCHARGE TODAY. MD MADE AWARE THAT BLOOD PRESSURE WAS ELEVATED. GAVE VERBAL ORDER TO GIVE MORNING MEDICATIONS AND ALLOW TIME FOR THOSE,CONTINUE TO MONITOR & KEEP HIM UPDATED. MD TO PLACED DISCHARGE PAPERWORK. TONYA AWARE AND ASKING TO GO DOWN THE HALLWAY AND WALK.
[2025-05-02] MEDS ORDERED: AMOCLA875 PO (11:11)
[2025-05-02 11:20] VITALS: BP 157/80
--- NOTE | 2025-05-02 12:15 | NUR ---
DISCHARGE NOTE: TONYA IS ALERT AND ORIENTED X4 & COOPERATIVE WITH HER CARE. SATTING >92% ON ROOM AIR. POWERGLIDE TO RIGHT UPPER ARM WAS TAKEN OUT. NEW MEDICATOIINS WERE SENT TO [facility] PER RONNIESHIN REQUEST. TONYA AND ELENSushil AWARE TO SERVER SYSTEMS ADMINISTRATOR MEDICATIONS ONCE LEAIVNG FROM HERE. TONYA AWARE THAT GI OFFICE WILL CALL WITH RESULTS & TO SCHEDULE AN APPOINTMENT WITH HER. TONYA AWARE OF TELE HEALTH APPOINTMENT SCHEDULED FOR THE OF THIS MONTH WITH HER PRIMARY. TONYA TOOK ALL PERSONAL BELONIGNGS AND FROZEN FOOD PROVIDED FROM THE HOSPITAL. TONYA WAS WHEELED OUT WITH HER RIDE WITH HER AND ALL PERSONAL BELONIGNGS.
[2025-05-04 11:19] LABS: CALPROTECTIN,FECAL >3000 ug/g (<=49)
== END 2025-05-02 12:00 | disposition home or self-care (01) | DRG 871 ==
LOC: ER 13:11 → PCU 16:03
PROVIDERS: Emergency Medicine; Internal Medicine Gastroenterology; ADMIT Internal Medicine
PROC: 3E03329 Introduction of Other Anti-infective into Peripheral Vein, Percutaneous Approach (ICD-10-PCS; 2025-04-28)
PROC: 0DBN8ZX Excision of Sigmoid Colon, Via Natural or Artificial Opening Endoscopic, Diagnostic (ICD-10-PCS; 2025-04-30)
PROC: 0DBP8ZX Excision of Rectum, Via Natural or Artificial Opening Endoscopic, Diagnostic (ICD-10-PCS; principal; 2025-04-30 17:30)
DX: A41.9 Sepsis, unspecified organism (principal); R65.21 Severe sepsis with septic shock; E87.20 Acidosis, unspecified; N17.9 Acute kidney failure, unspecified; D62 Acute posthemorrhagic anemia; Z66 Do not resuscitate; E78.5 Hyperlipidemia, unspecified; K21.9 Gastro-esophageal reflux disease without esophagitis; K52.9 Noninfective gastroenteritis and colitis, unspecified; I95.1 Orthostatic hypotension; M51.369 Other intervertebral disc degeneration, lumbar region without mention of lumbar back pain or lower extremity pain; E87.5 Hyperkalemia; I12.9 Hypertensive chronic kidney disease with stage 1 through stage 4 chronic kidney disease, or unspecified chronic kidney disease; E11.22 Type 2 diabetes mellitus with diabetic chronic kidney disease; N18.2 Chronic kidney disease, stage 2 (mild); M19.90 Unspecified osteoarthritis, unspecified site; G47.00 Insomnia, unspecified; F32.A Depression, unspecified; R01.1 Cardiac murmur, unspecified; Z86.73 Personal history of transient ischemic attack (TIA), and cerebral infarction without residual deficits; Z79.899 Other long term (current) drug therapy; Z79.84 Long term (current) use of oral hypoglycemic drugs; Z85.41 Personal history of malignant neoplasm of cervix uteri; Z90.49 Acquired absence of other specified parts of digestive tract; Z88.8 Allergy status to other drugs, medicaments and biological substances; Z79.82 Long term (current) use of aspirin
CPT/HCPCS: 36415; 74177; 80048; 80053; 80069; 82550; 82947; 83036; 83605; 83735; 83993; 84132; 84484; 85025; 85027; 86140; 86141; 87507; 88305; 96361; 96374-59; 96375; 97116; 97161; 97530; 99285-25; A9270; C1751; J0360; J0612; J0744; J0780; J1650; J1815; J2470; J2704; J3010; J7030; J7040; J7042; J7120; P9612; Q9967

== ENCOUNTER 2025-05-14 10:24 | Emergency (ER) | payer MEDICARE ==
[~2025-05-14] VITALS: Ht 162.6 cm; Wt 55.0 kg
[~2025-05-14 10:24] MED LIST changes: +AMLO5 PO; +AMOCLA875 PO; +DIPH50 PO
[2025-05-14 10:42] VITALS: BP 160/76
== END 2025-05-14 12:20 | disposition home or self-care (01) ==
LOC: ER 10:24
DX: S42.292A Other displaced fracture of upper end of left humerus, initial encounter for closed fracture (principal); S42.212A Unspecified displaced fracture of surgical neck of left humerus, initial encounter for closed fracture; S42.252A Displaced fracture of greater tuberosity of left humerus, initial encounter for closed fracture; Z88.8 Allergy status to other drugs, medicaments and biological substances; E11.9 Type 2 diabetes mellitus without complications; K21.9 Gastro-esophageal reflux disease without esophagitis; I10 Essential (primary) hypertension; Z86.73 Personal history of transient ischemic attack (TIA), and cerebral infarction without residual deficits; Z91.018 Allergy to other foods; Z79.82 Long term (current) use of aspirin; Z79.899 Other long term (current) drug therapy; W18.39XA Other fall on same level, initial encounter
CPT/HCPCS: 73030; 99283-25